=== PATIENT | female | born 1960 | race Caucasian/White ===

== ENCOUNTER 2020-02-27 00:18 | Emergency (ER) | payer MEDICAID, OTHER ==
[~2020-02-27] VITALS: Ht 172.7 cm; Wt 68.0 kg
[2020-02-27] MEDS ORDERED: TETanus/Pertussis (Acell)/Diphther VAC/PF (Tdap-Adult) 0.5ml syringe IMVAC ONE (00:25)
[2020-02-27] MEDS ORDERED: normal saline 1000ML IV soln IVB ONE (00:25)
[2020-02-27] MEDS ORDERED: magnesium oxide 400mg tablet PO ONE (00:25)
[2020-02-27] MEDS ORDERED: phenobarbital inj 260 MG in normal saline 100ml IV soln 100 ML IV ONE (00:25)
[2020-02-27] MEDS ORDERED: ondansetron/PF 4mg/2ml inj IV ONE (00:25)
[2020-02-27] MEDS ORDERED: thiamine 100mg tablet PO ONE (00:25)
[2020-02-27 01:03] LABS: BASOPHILS % (AUTO) 0.4 % (0-1); EOSINOPHILS % (AUTO) 0 % (0-6); HEMATOCRIT 39.9 % (35.0-45.0); HEMOGLOBIN 13.5 g/dl (12.0-16.0); LYMPHOCYTES # (AUTO) 0.7 X10'3 (1.1-4.8); LYMPHOCYTES % (AUTO) 11.5 % (21-51); MEAN CORPUSCULAR HEMOGLOBIN 32.5 PG (27.0-31.0); MEAN CORPUSCULAR HGB CONC 33.8 g/dL (33.0-36.5); MEAN CORPUSCULAR VOLUME 96.2 FL (78-98); MEAN PLATELET VOLUME 6.8 FL (7.4-10.4); MONOCYTES # (AUTO) 0.6 X10'3 (0-0.9); MONOCYTES % (AUTO) 10.7 % (2-12); NEUTROPHILS # (AUTO) 4.5 X10'3 (1.8-7.7); NEUTROPHILS % (AUTO) 77.4 % (42-75); PLATELET COUNT 231 X10'3 (140-440); RED BLOOD COUNT 4.15 X10'6 (4.20-5.60); RED CELL DISTRIBUTION WIDTH 14.4 % (11.5-14.5); WHITE BLOOD COUNT 5.8 X10'3 (4.5-11.0)
[2020-02-27 01:10] LABS: ALANINE AMINOTRANSFERASE 114 U/L (12-78); ALBUMIN 3.9 G/DL (3.4-5.0); ALKALINE PHOSPHATASE 115 IU/L (46-116); ANION GAP 18 (8-16); ASPARTATE AMINO TRANSFERASE 128 U/L (10-37); BILIRUBIN,TOTAL 0.8 MG/DL (0.1-1.0); BLOOD UREA NITROGEN 14 MG/DL (7-18); BUN/CREATININE RATIO 17.5 (6.6-38.0); CALCIUM 9.4 MG/DL (8.5-10.1); CHLORIDE 90 MMOL/L (99-107); ETHANOL < 0.010 GM/DL (0.0-0.010); GLUCOSE 158 MG/DL (70-104); MAGNESIUM 1.9 MG/DL (1.5-2.4); POTASSIUM 3.2 MMOL/L (3.5-5.1); SODIUM 130 MMOL/L (135-145); TOTAL PROTEIN 7.8 G/DL (6.4-8.2); eGFR 73 ML/MIN
[2020-02-27] MEDS ORDERED: potassium Cl 20 mEq SR tablet PO STA (01:33)
[2020-02-27] MEDS ORDERED: phenobarbital inj 130 MG in normal saline 250ml IV soln 250 ML IV ONE (01:35)
[2020-02-27] MEDS ORDERED: mag hydrox/Alum hydrox/simeth 30ml oral suspension PO ONE (02:00)
[2020-02-27] MEDS ORDERED: LIDOcaine Viscous 15ml cup MM PRN (02:00)
[2020-02-27] MEDS ORDERED: sucralfate 1gm/10ml UD suspension PO SCH (02:00)
[2020-02-27] MEDS ORDERED: pantoprazole 40 MG vial IV ONE (02:00)
[2020-02-27] MEDS ORDERED: famotidine/PF 10 mg/ml inj IV ONE (02:00)
[2020-02-27 03:08] VITALS: BP 152/74
== END 2020-02-27 03:13 | disposition home or self-care (01) ==
LOC: ER 00:19
DX: S01.512A Laceration without foreign body of oral cavity, initial encounter (principal); F10.239 Alcohol dependence with withdrawal, unspecified; K21.9 Gastro-esophageal reflux disease without esophagitis; E87.6 Hypokalemia; I10 Essential (primary) hypertension; Z90.710 Acquired absence of both cervix and uterus; X58.XXXA Exposure to other specified factors, initial encounter; Y93.89 Activity, other specified; Y92.89 Other specified places as the place of occurrence of the external cause; Y99.9 Unspecified external cause status; Y90.9 Presence of alcohol in blood, level not specified
CPT/HCPCS: 36415; 80053; 80320; 82948; 83735; 85025; 90471; 90715; 93005; 96374; 96375; 96376; 99284; C9113; J2405; J3490; J7030

== ENCOUNTER 2020-07-11 21:16 | Inpatient (IN) | payer MEDICAID ==
[~2020-07-11] VITALS: Ht 172.7 cm; Wt 72.7 kg
[2020-07-11] MEDS ORDERED: LORazepam 2 mg/ml vial IV ONE (21:35)
[2020-07-11] MEDS ORDERED: normal saline 1000ML IV soln IVB ONE (21:35)
[2020-07-11 21:49] LABS: BASOPHILS % (AUTO) 0.1 % (0-1); EOSINOPHILS % (AUTO) 0 % (0-6); HEMATOCRIT 40.1 % (35.0-45.0); HEMOGLOBIN 13.5 g/dl (12.0-16.0); LYMPHOCYTES # (AUTO) 0.5 X10'3 (1.1-4.8); LYMPHOCYTES % (AUTO) 5.2 % (21-51); MEAN CORPUSCULAR HEMOGLOBIN 30.5 PG (27.0-31.0); MEAN CORPUSCULAR HGB CONC 33.6 g/dL (33.0-36.5); MEAN CORPUSCULAR VOLUME 90.8 FL (78-98); MEAN PLATELET VOLUME 8.1 FL (7.4-10.4); MONOCYTES # (AUTO) 0.6 X10'3 (0-0.9); NEUTROPHILS % (AUTO) 88.7 % (42-75); PLATELET COUNT 200 X10'3 (140-440); RED BLOOD COUNT 4.41 X10'6 (4.20-5.60); RED CELL DISTRIBUTION WIDTH 14.3 % (11.5-14.5); WHITE BLOOD COUNT 10.2 X10'3 (4.5-11.0)
[2020-07-11 22:09] LABS: CLARITY,URINE CLOUDY (Clear); COLOR,URINE STRAW (Yellow); GLUCOSE, URINE NEGATIVE (Neg); KETONES,URINE NEGATIVE (Neg); LEUKOCYTE ESTERASE ,URINE NEGATIVE (Neg); NITRITES, URINE NEGATIVE (Neg); OCCULT BLOOD,URINE SMALL (Neg); PH,URINE 5.5 (4.8-8.0); PROTEIN,URINE 100 mg/dl (Neg); UROBILINOGEN,URINE 0.2 E.U/dL (0.2-1.0)
[2020-07-11 22:09] LABS: ALANINE AMINOTRANSFERASE 56 U/L (12-78); ALBUMIN 3.7 G/DL (3.4-5.0); ALKALINE PHOSPHATASE 90 IU/L (46-116); ANION GAP 14 (8-16); ASPARTATE AMINO TRANSFERASE 49 U/L (10-37); BILIRUBIN,TOTAL 0.8 MG/DL (0.1-1.0); BLOOD UREA NITROGEN 33 MG/DL (7-18); BUN/CREATININE RATIO 11.7 (6.6-38.0); CALCIUM 8.5 MG/DL (8.5-10.1); CHLORIDE 82 MMOL/L (99-107); CREATININE 2.81 MG/DL (0.40-0.90); ETHANOL < 0.010 GM/DL (0.0-0.010); GLUCOSE 146 MG/DL (70-104); POTASSIUM 3.6 MMOL/L (3.5-5.1); SODIUM 121 MMOL/L (135-145); TOTAL CARBON DIOXIDE 24.7 MMOL/L (24-32); TOTAL PROTEIN 7.4 G/DL (6.4-8.2); eGFR 17 ML/MIN
[2020-07-11 22:16] LABS: UA COLLECTION TYPE STRAIGHT CATH
[2020-07-11 22:17] LABS: WBC,URINE NONE SEEN /HPF (0-4)
[2020-07-11 22:18] LABS: AMORPHOUS URATES 3+; BACTERIA,URINE FEW /HPF (Neg); RBC,URINE 0-2 /HPF (0-2); SQUAMOUS EPITHELIAL CELL,UR FEW /LPF (FEW)
[2020-07-11 22:20] LABS: URINE AMPHETAMINE SCREEN NEGATIVE (Neg); URINE BARBITUATE SCREEN NEGATIVE (Neg); URINE BENZODIAZEPINES SCREEN NEGATIVE (Neg); URINE CANNABINOID SCREEN NEGATIVE (Neg); URINE COCAINE SCREEN NEGATIVE (Neg); URINE METHADONE SCREEN NEGATIVE (Neg); URINE OPIATE SCREEN NEGATIVE (Neg); URINE PHENCYCLIDINE SCREEN NEGATIVE (Neg)
[2020-07-11] MEDS ORDERED: sucralfate 1gm/10ml UD suspension PO STA (23:06)
[2020-07-11] MEDS ORDERED: mag hydrox/Alum hydrox/simeth 30ml oral suspension PO ONE (23:10)
[2020-07-11] MEDS ORDERED: LIDOcaine Viscous 15ml cup MM ONE (23:10)
[2020-07-11] MEDS ORDERED: CITA-311 PO (23:16)
[2020-07-11] MEDS ORDERED: TRAZ-256 PO (23:16)
[2020-07-12] MEDS ORDERED: LORazepam 2 mg/ml vial IV ONE (00:30)
--- NOTE | 2020-07-12 00:42 | NUR ---
pt started to try to climb out of bed and pull at her lines, requested ativan to help pt
[2020-07-12] MEDS ORDERED: magnesium hydroxide 30ml (MOM) UD suspension PO PRN (01:00)
[2020-07-12] MEDS ORDERED: acetaminophen 325mg tablet PO PRN (01:00)
[2020-07-12] MEDS ORDERED: potassium Cl 20 mEq SR tablet PO PRN ×2 (01:00)
[2020-07-12] MEDS ORDERED: HYDROcodone/acetaminophen 5mg/325mg tablet PO PRN (01:00)
[2020-07-12] MEDS ORDERED: mag hydrox/Alum hydrox/simeth 30ml oral suspension PO PRN (01:00)
[2020-07-12] MEDS ORDERED: potassium CL 10mEq/100ml bag 100 ML IV PRN ×2 (01:00)
[2020-07-12] MEDS ORDERED: thiamine inj. 100 MG in normal saline 100ml IV soln 100 ML IV ONE (01:05)
[2020-07-12] MEDS ORDERED: thiamine 100mg/ml 2ml inj. IV ONE (01:20)
[2020-07-12] MEDS: normal saline 1000ml 1,000 ML IV SCH ×3 (01:27→21:00)
[2020-07-12] MEDS: LORazepam 2 mg/ml vial IV PRN ×2 (01:52→04:57)
--- NOTE | 2020-07-12 02:12 | NUR ---
Pt resting comfortably with eyes closed
--- NOTE | 2020-07-12 05:15 | NUR ---
Patient arrived to floor from ER via gurney. Patient assist to bed. Patient is alert, but not talking at this time. VS taken and MRSa swab collected.
[2020-07-12 05:20] VITALS: BP 132/76
--- NOTE | 2020-07-12 06:10 | NUR ---
Patient in room ORTHO 4010. I have received report from Ning and had the opportunity to ask questions and assume patient care.
--- NOTE | 2020-07-12 06:19 | NUR ---
Problems reprioritized. Patient report given, questions answered & plan of care reviewed with PORTIA Roper.
[2020-07-12] MEDS: K and/or MAG REPLACEMENT MC SCH ×2 (08:00→20:00)
[2020-07-12] MEDS ORDERED: haloperidol lactate 5mg/ml inj IM PRN (08:05)
[2020-07-12] MEDS ORDERED: LORazepam 2 mg/ml vial IV PRN ×2 (08:05)
[2020-07-12 09:20] LABS: BASOPHILS % (AUTO) 0.1 % (0-1); EOSINOPHILS % (AUTO) 0.1 % (0-6); HEMATOCRIT 34.5 % (35.0-45.0); HEMOGLOBIN 11.8 g/dl (12.0-16.0); LYMPHOCYTES # (AUTO) 0.6 X10'3 (1.1-4.8); LYMPHOCYTES % (AUTO) 11.4 % (21-51); MEAN CORPUSCULAR HEMOGLOBIN 31.3 PG (27.0-31.0); MEAN CORPUSCULAR HGB CONC 34.2 g/dL (33.0-36.5); MEAN CORPUSCULAR VOLUME 91.4 FL (78-98); MEAN PLATELET VOLUME 8.4 FL (7.4-10.4); MONOCYTES # (AUTO) 0.6 X10'3 (0-0.9); MONOCYTES % (AUTO) 10.4 % (2-12); NEUTROPHILS # (AUTO) 4.3 X10'3 (1.8-7.7); PLATELET COUNT 145 X10'3 (140-440); RED BLOOD COUNT 3.77 X10'6 (4.20-5.60); WHITE BLOOD COUNT 5.5 X10'3 (4.5-11.0)
[2020-07-12 09:46] LABS: ALANINE AMINOTRANSFERASE 47 U/L (12-78); ALBUMIN 2.9 G/DL (3.4-5.0); ALBUMIN/GLOBULIN RATIO 0.9 (1.1-1.5); ALKALINE PHOSPHATASE 63 IU/L (46-116); ANION GAP 6 (8-16); ASPARTATE AMINO TRANSFERASE 40 U/L (10-37); BILIRUBIN,TOTAL 0.9 MG/DL (0.1-1.0); BLOOD UREA NITROGEN 33 MG/DL (7-18); BUN/CREATININE RATIO 13.1 (6.6-38.0); CALCIUM 7.8 MG/DL (8.5-10.1); CHLORIDE 89 MMOL/L (99-107); CREATININE 2.51 MG/DL (0.40-0.90); GLUCOSE 87 MG/DL (70-104); POTASSIUM 3.5 MMOL/L (3.5-5.1); SODIUM 126 MMOL/L (135-145); TOTAL CARBON DIOXIDE 31.5 MMOL/L (24-32); TOTAL PROTEIN 6.1 G/DL (6.4-8.2); eGFR 19 ML/MIN
[2020-07-12 10:00] VITALS: BP 130/66
[2020-07-12] MEDS: thiamine 100mg tablet PO SCH (10:07)
[2020-07-12] MEDS: heparin, porcine 5000 units/ml vial SQ SCH ×2 (10:07→20:07)
[2020-07-12 18:00] VITALS: BP 143/90
--- NOTE | 2020-07-12 18:10 | NUR ---
Patient in room ORTHO 4010. I have received report from PORTIA Roper and had the opportunity to ask questions and assume patient care.
--- NOTE | 2020-07-12 18:17 | NUR ---
Problems reprioritized. Patient report given, questions answered & plan of care reviewed with
[2020-07-12] MEDS: traZODone 50mg tablet PO SCH (21:48)
[2020-07-12 22:00] VITALS: BP 132/80
[2020-07-13 06:00] VITALS: BP 139/73
--- NOTE | 2020-07-13 06:29 | NUR ---
Problems reprioritized. Patient report given, questions answered & plan of care reviewed with PORTIA Celaya.
--- NOTE | 2020-07-13 06:37 | NUR ---
Patient in room ORTHO 4010. I have received report from PORTIA Burgess and had the opportunity to ask questions and assume patient care.
[2020-07-13] MEDS: normal saline 1000ml 1,000 ML IV SCH ×3 (07:00→22:22)
[2020-07-13] MEDS: thiamine 100mg tablet PO SCH (07:29)
[2020-07-13] MEDS: heparin, porcine 5000 units/ml vial SQ SCH ×2 (07:29→19:38)
[2020-07-13 07:47] LABS: ALANINE AMINOTRANSFERASE 51 U/L (12-78); ALBUMIN/GLOBULIN RATIO 0.9 (1.1-1.5); ALKALINE PHOSPHATASE 67 IU/L (46-116); ANION GAP 6 (8-16); ASPARTATE AMINO TRANSFERASE 46 U/L (10-37); BILIRUBIN,TOTAL 0.7 MG/DL (0.1-1.0); BLOOD UREA NITROGEN 36 MG/DL (7-18); CALCIUM 8.5 MG/DL (8.5-10.1); CHLORIDE 98 MMOL/L (99-107); GLUCOSE 93 MG/DL (70-104); SODIUM 134 MMOL/L (135-145); TOTAL CARBON DIOXIDE 29.7 MMOL/L (24-32); TOTAL PROTEIN 6.3 G/DL (6.4-8.2); eGFR 25 ML/MIN
[2020-07-13 07:48] LABS: BASOPHILS % (AUTO) 0.2 % (0-1); EOSINOPHILS % (AUTO) 0.4 % (0-6); HEMATOCRIT 36.6 % (35.0-45.0); HEMOGLOBIN 12.5 g/dl (12.0-16.0); LYMPHOCYTES # (AUTO) 0.8 X10'3 (1.1-4.8); LYMPHOCYTES % (AUTO) 17.1 % (21-51); MEAN CORPUSCULAR HEMOGLOBIN 31.4 PG (27.0-31.0); MEAN CORPUSCULAR HGB CONC 34.1 g/dL (33.0-36.5); MEAN CORPUSCULAR VOLUME 92.3 FL (78-98); MEAN PLATELET VOLUME 8.7 FL (7.4-10.4); MONOCYTES # (AUTO) 0.6 X10'3 (0-0.9); MONOCYTES % (AUTO) 12.1 % (2-12); NEUTROPHILS # (AUTO) 3.3 X10'3 (1.8-7.7); NEUTROPHILS % (AUTO) 70.2 % (42-75); PLATELET COUNT 130 X10'3 (140-440); RED BLOOD COUNT 3.96 X10'6 (4.20-5.60); RED CELL DISTRIBUTION WIDTH 14.4 % (11.5-14.5); WHITE BLOOD COUNT 4.7 X10'3 (4.5-11.0)
[2020-07-13] MEDS: K and/or MAG REPLACEMENT MC SCH ×2 (08:00→19:26)
[2020-07-13 10:00] VITALS: BP 134/82
[2020-07-13 18:00] VITALS: BP 147/93
--- NOTE | 2020-07-13 18:40 | NUR ---
Problems reprioritized. Patient report given, questions answered & plan of care reviewed with PORTIA Isaacs.
--- NOTE | 2020-07-13 18:45 | NUR ---
Patient in room ORTHO 4010. I have received report from PORTIA Celaya and had the opportunity to ask questions and assume patient care.
[2020-07-13 22:00] VITALS: BP 143/85
[2020-07-13] MEDS: traZODone 50mg tablet PO SCH (22:22)
[2020-07-14] MEDS ORDERED: LORazepam 1 MG tablet PO PRN (01:05)
--- NOTE | 2020-07-14 02:45 | NUR ---
Pt has field start IV on left wrist, infusing well with fluid. Dressing CDI. Pt refused new IV start.
[2020-07-14 06:00] VITALS: BP 151/80
--- NOTE | 2020-07-14 06:12 | NUR ---
Patient in room ORTHO 4010. I have received report from PORTIA Isaacs and had the opportunity to ask questions and assume patient care.
--- NOTE | 2020-07-14 06:15 | NUR ---
Problems reprioritized. Patient report given, questions answered & plan of care reviewed with PORTIA Celaya.
[2020-07-14 07:02] LABS: BASOPHILS % (AUTO) 0.3 % (0-1); EOSINOPHILS % (AUTO) 0.9 % (0-6); HEMATOCRIT 34.7 % (35.0-45.0); HEMOGLOBIN 11.6 g/dl (12.0-16.0); LYMPHOCYTES # (AUTO) 0.9 X10'3 (1.1-4.8); LYMPHOCYTES % (AUTO) 18.8 % (21-51); MEAN CORPUSCULAR HEMOGLOBIN 31.2 PG (27.0-31.0); MEAN CORPUSCULAR HGB CONC 33.3 g/dL (33.0-36.5); MEAN CORPUSCULAR VOLUME 93.5 FL (78-98); MEAN PLATELET VOLUME 8.7 FL (7.4-10.4); MONOCYTES # (AUTO) 0.6 X10'3 (0-0.9); MONOCYTES % (AUTO) 12.2 % (2-12); NEUTROPHILS # (AUTO) 3.4 X10'3 (1.8-7.7); NEUTROPHILS % (AUTO) 67.8 % (42-75); PLATELET COUNT 124 X10'3 (140-440); RED BLOOD COUNT 3.71 X10'6 (4.20-5.60); RED CELL DISTRIBUTION WIDTH 14.2 % (11.5-14.5)
[2020-07-14] MEDS: thiamine 100mg tablet PO SCH (07:09)
[2020-07-14] MEDS: heparin, porcine 5000 units/ml vial SQ SCH (07:09)
[2020-07-14] MEDS ORDERED: LOSA25TA96 PO (07:13)
[2020-07-14 07:14] LABS: ALANINE AMINOTRANSFERASE 43 U/L (12-78); ALBUMIN 2.9 G/DL (3.4-5.0); ALBUMIN/GLOBULIN RATIO 0.9 (1.1-1.5); ALKALINE PHOSPHATASE 75 IU/L (46-116); ANION GAP 8 (8-16); ASPARTATE AMINO TRANSFERASE 29 U/L (10-37); BILIRUBIN,TOTAL 0.5 MG/DL (0.1-1.0); BLOOD UREA NITROGEN 29 MG/DL (7-18); BUN/CREATININE RATIO 17.3 (6.6-38.0); CALCIUM 8.2 MG/DL (8.5-10.1); CHLORIDE 100 MMOL/L (99-107); CREATININE 1.68 MG/DL (0.40-0.90); GLUCOSE 107 MG/DL (70-104); POTASSIUM 3.7 MMOL/L (3.5-5.1); SODIUM 136 MMOL/L (135-145); TOTAL PROTEIN 6.1 G/DL (6.4-8.2); eGFR 31 ML/MIN
[2020-07-14] MEDS: K and/or MAG REPLACEMENT MC SCH (07:17)
[2020-07-14] MEDS: normal saline 1000ml 1,000 ML IV SCH (08:12)
[2020-07-14 10:00] VITALS: BP 130/75
--- NOTE | 2020-07-14 13:59 | NUR ---
Discharged. PIV out. Educated on follow-up. Patient ambulated out.
[2020-07-16] MEDS ORDERED: LORazepam 1 MG tablet PO PRN (01:05)
== END 2020-07-14 13:30 | disposition home or self-care (01) | DRG 469 ==
LOC: ER 21:17 → ED HOLD 07-12 01:00 → ORTHO 4S 07-12 05:18
PROVIDERS: ADMIT Internal Medicine; ATTEND Family Medicine
DX: N17.9 Acute kidney failure, unspecified (principal); E86.0 Dehydration; E87.1 Hypo-osmolality and hyponatremia; F10.239 Alcohol dependence with withdrawal, unspecified; F32.9 Major depressive disorder, single episode, unspecified; I10 Essential (primary) hypertension; R56.9 Unspecified convulsions; Z90.710 Acquired absence of both cervix and uterus
CPT/HCPCS: 36415; 70450; 71045; 80053; 80305; 80320; 81001; 82948; 85025; 87081; 96374; 96376; 99285; G0378; J1644; J2060; J3411; J7030

== ENCOUNTER 2020-10-24 16:47 | Emergency (ER) | payer MEDICAID ==
[~2020-10-24] VITALS: Ht 172.7 cm; Wt 76.4 kg
[~2020-10-24 16:47] MED LIST: CITA-311 PO; LOSA25TA96 PO; TRAZ-256 PO
[2020-10-24] MEDS ORDERED: normal saline 1000ML IV soln IVB ONE ×2 (17:10→18:15)
[2020-10-24] MEDS ORDERED: LORazepam 2 mg/ml vial IV ONE (17:10)
[2020-10-24 17:47] LABS: BASOPHILS % (AUTO) 0.2 % (0-1); EOSINOPHILS % (AUTO) 0 % (0-6); HEMATOCRIT 42.3 % (35.0-45.0); HEMOGLOBIN 14.2 g/dl (12.0-16.0); LYMPHOCYTES # (AUTO) 0.2 X10'3 (1.1-4.8); LYMPHOCYTES % (AUTO) 1.8 % (21-51); MEAN CORPUSCULAR HEMOGLOBIN 31.5 PG (27.0-31.0); MEAN CORPUSCULAR HGB CONC 33.6 g/dL (33.0-36.5); MEAN CORPUSCULAR VOLUME 93.8 FL (78-98); MEAN PLATELET VOLUME 7.1 FL (7.4-10.4); MONOCYTES # (AUTO) 0.5 X10'3 (0-0.9); MONOCYTES % (AUTO) 3.7 % (2-12); NEUTROPHILS # (AUTO) 11.6 X10'3 (1.8-7.7); NEUTROPHILS % (AUTO) 94.3 % (42-75); PLATELET COUNT 300 X10'3 (140-440); RED BLOOD COUNT 4.51 X10'6 (4.20-5.60); RED CELL DISTRIBUTION WIDTH 13.5 % (11.5-14.5); WHITE BLOOD COUNT 12.3 X10'3 (4.5-11.0)
[2020-10-24 18:03] LABS: ALANINE AMINOTRANSFERASE 207 U/L (12-78); ALBUMIN 4.5 G/DL (3.4-5.0); ALKALINE PHOSPHATASE 97 IU/L (46-116); ANION GAP 22 (8-16); ASPARTATE AMINO TRANSFERASE 177 U/L (10-37); BILIRUBIN,TOTAL 1.1 MG/DL (0.1-1.0); BLOOD UREA NITROGEN 17 MG/DL (7-18); CALCIUM 9.6 MG/DL (8.5-10.1); CHLORIDE 91 MMOL/L (99-107); CREATININE 0.81 MG/DL (0.40-0.90); GLUCOSE 114 MG/DL (70-104); SODIUM 133 MMOL/L (135-145); TOTAL PROTEIN 8.8 G/DL (6.4-8.2); eGFR 72 ML/MIN
[2020-10-24 18:06] LABS: ETHANOL < 0.010 GM/DL (0.0-0.010); LACTIC SEPSIS 3.5 MMOL/L (0.4-2.0); TROPONIN I < 0.04 NG/ML (0.0-0.05)
[2020-10-24 18:11] LABS: AMMONIA < 10 UMOL/L (11-32)
[2020-10-24 19:34] LABS: CLARITY,URINE CLEAR (Clear); COLOR,URINE YELLOW (Yellow); GLUCOSE, URINE NEGATIVE (Neg); KETONES,URINE >=80 mg/dl (Neg); LEUKOCYTE ESTERASE ,URINE NEGATIVE (Neg); NITRITES, URINE NEGATIVE (Neg); OCCULT BLOOD,URINE LARGE (Neg); PH,URINE 5.5 (4.8-8.0); PROTEIN,URINE 30 mg/dl (Neg); UROBILINOGEN,URINE 0.2 E.U/dL (0.2-1.0)
[2020-10-24 19:45] LABS: UA COLLECTION TYPE STRAIGHT CATH
[2020-10-24 19:46] LABS: BACTERIA,URINE NONE SEEN /HPF (Neg); RBC,URINE 0-2 /HPF (0-2); SQUAMOUS EPITHELIAL CELL,UR FEW /LPF (FEW); WBC,URINE NONE SEEN /HPF (0-4)
[2020-10-24 19:48] LABS: URINE AMPHETAMINE SCREEN NEGATIVE (Neg); URINE BARBITUATE SCREEN NEGATIVE (Neg); URINE BENZODIAZEPINES SCREEN NEGATIVE (Neg); URINE CANNABINOID SCREEN NEGATIVE (Neg); URINE COCAINE SCREEN NEGATIVE (Neg); URINE METHADONE SCREEN NEGATIVE (Neg); URINE OPIATE SCREEN NEGATIVE (Neg); URINE PHENCYCLIDINE SCREEN NEGATIVE (Neg)
[2020-10-24] MEDS ORDERED: CHLO25CA10 PO (20:41)
[2020-10-24 21:01] VITALS: BP 160/81
== END 2020-10-24 22:06 | disposition home or self-care (01) ==
LOC: ER 16:48
DX: R56.9 Unspecified convulsions (principal); R41.82 Altered mental status, unspecified; R53.1 Weakness; F10.129 Alcohol abuse with intoxication, unspecified; R74.02 Elevation of levels of lactic acid dehydrogenase [LDH]; I10 Essential (primary) hypertension; I25.2 Old myocardial infarction; F32.9 Major depressive disorder, single episode, unspecified; Z90.710 Acquired absence of both cervix and uterus; Z72.89 Other problems related to lifestyle; Z79.899 Other long term (current) drug therapy
CPT/HCPCS: 36415; 71045; 80053; 80305; 80320; 81001; 82140; 82948; 83605; 84484; 85025; 87040; 93005; 96361; 96374; 99285; J2060; J7030

== ENCOUNTER 2021-01-31 13:33 | Emergency (ER) | payer MEDICAID ==
[~2021-01-31] VITALS: Ht 170.2 cm; Wt 70.0 kg
[~2021-01-31 13:33] MED LIST changes: +CHLO25CA10 PO; +pantoprazole 40mg Tablet.DR PO ONE
[2021-01-31] MEDS ORDERED: normal saline 1000ml 1,000 ML IV ONE (13:50)
[2021-01-31] MEDS ORDERED: LORazepam 2 mg/ml vial IV ONE ×2 (13:50→14:25)
[2021-01-31] MEDS ORDERED: levetiracetam inj 1,000 MG in normal saline 100ml IV soln 90 ML IV ONE (13:50)
[2021-01-31 14:10] LABS: BASOPHILS % (AUTO) 0.6 % (0-1); EOSINOPHILS % (AUTO) 0.1 % (0-6); HEMOGLOBIN 12.4 g/dl (12.0-16.0); LYMPHOCYTES # (AUTO) 0.8 X10'3 (1.1-4.8); LYMPHOCYTES % (AUTO) 10.9 % (21-51); MEAN CORPUSCULAR HEMOGLOBIN 32.2 PG (27.0-31.0); MEAN CORPUSCULAR HGB CONC 32.7 g/dL (33.0-36.5); MEAN CORPUSCULAR VOLUME 98.5 FL (78-98); MONOCYTES # (AUTO) 0.4 X10'3 (0-0.9); MONOCYTES % (AUTO) 5.1 % (2-12); NEUTROPHILS # (AUTO) 6.1 X10'3 (1.8-7.7); NEUTROPHILS % (AUTO) 83.3 % (42-75); PLATELET COUNT 254 X10'3 (140-440); RED BLOOD COUNT 3.86 X10'6 (4.20-5.60); RED CELL DISTRIBUTION WIDTH 17.9 % (11.5-14.5); WHITE BLOOD COUNT 7.3 X10'3 (4.5-11.0)
[2021-01-31 14:24] LABS: ALANINE AMINOTRANSFERASE 42 U/L (12-78); ALBUMIN 3.5 G/DL (3.4-5.0); ALKALINE PHOSPHATASE 130 IU/L (46-116); ANION GAP 17 (8-16); ASPARTATE AMINO TRANSFERASE 42 U/L (10-37); BILIRUBIN,TOTAL 0.9 MG/DL (0.1-1.0); BLOOD UREA NITROGEN 11 MG/DL (7-18); BUN/CREATININE RATIO 11.6 (6.6-38.0); CALCIUM 8.9 MG/DL (8.5-10.1); CHLORIDE 95 MMOL/L (99-107); CREATINE KINASE 108 U/L (26-192); CREATININE 0.95 MG/DL (0.40-0.90); ETHANOL < 0.010 GM/DL (0.0-0.010); GLUCOSE 180 MG/DL (70-104); SODIUM 135 MMOL/L (135-145); TOTAL CARBON DIOXIDE 22.8 MMOL/L (24-32); TOTAL PROTEIN 7.1 G/DL (6.4-8.2); eGFR 60 ML/MIN
--- NOTE | 2021-01-31 14:29 | NUR ---
k is 3.0 reported to noemi wilson
[2021-01-31] MEDS ORDERED: potassium Cl 20 mEq SR tablet PO STA (14:33)
[2021-01-31] MEDS ORDERED: normal saline 1000ML IV soln IVB ONE (15:20)
[2021-01-31] MEDS ORDERED: ondansetron/PF 4mg/2ml inj IV ONE (15:45)
[2021-01-31] MEDS ORDERED: magnesium oxide 400mg tablet PO ONE (15:45)
[2021-01-31] MEDS ORDERED: thiamine 100mg tablet PO ONE (15:45)
[2021-01-31] MEDS ORDERED: phenobarbital inj 260 MG in normal saline 100ml IV soln 100 ML IV ONE (15:45)
[2021-01-31] MEDS: normal saline 1000ML IV soln IVB ONE ×2 (16:12→16:29)
[2021-01-31 16:30] LABS: MAGNESIUM 1.6 MG/DL (1.5-2.4)
[2021-01-31 16:41] LABS: URINE AMPHETAMINE SCREEN NEGATIVE (Neg); URINE BARBITUATE SCREEN NEGATIVE (Neg); URINE BENZODIAZEPINES SCREEN NEGATIVE (Neg); URINE CANNABINOID SCREEN POSITIVE (Neg); URINE COCAINE SCREEN NEGATIVE (Neg); URINE METHADONE SCREEN NEGATIVE (Neg); URINE OPIATE SCREEN NEGATIVE (Neg); URINE PHENCYCLIDINE SCREEN NEGATIVE (Neg)
[2021-01-31] MEDS ORDERED: GABA300T26 PO (17:30)
--- NOTE | 2021-01-31 17:41 | NUR ---
NO SZ ACTIVITY NOTED.
--- NOTE | 2021-01-31 18:31 | NUR ---
fluid challenge. pt tolerated 200cc of h20
[2021-01-31 18:52] VITALS: BP 139/69
== END 2021-01-31 20:24 | disposition home or self-care (01) ==
LOC: ER 13:34
DX: R56.9 Unspecified convulsions (principal); F10.239 Alcohol dependence with withdrawal, unspecified; E87.2 Acidosis; I10 Essential (primary) hypertension; I25.2 Old myocardial infarction; F32.9 Major depressive disorder, single episode, unspecified; Z90.710 Acquired absence of both cervix and uterus; Z79.899 Other long term (current) drug therapy; Y90.0 Blood alcohol level of less than 20 mg/100 ml
CPT/HCPCS: 36415; 71045; 80053; 80305; 80320; 82140; 82550; 83605; 83735; 85025; 93005; 96361; 96365; 96366; 96375; 99285; J2060; J2405; J2560; J7030

== ENCOUNTER 2021-07-13 21:04 | Inpatient (IN) | payer MEDICAID ==
[~2021-07-13] VITALS: Ht 170.2 cm; Wt 66.0 kg
[~2021-07-13 21:04] MED LIST changes: +GABA300T26 PO; -pantoprazole 40mg Tablet.DR PO ONE
[2021-07-13 22:05] LABS: BASOPHILS % (AUTO) 0.1 % (0-1); EOSINOPHILS % (AUTO) 0.1 % (0-6); HEMATOCRIT 40.1 % (35.0-45.0); HEMOGLOBIN 13.9 g/dl (12.0-16.0); LYMPHOCYTES # (AUTO) 0.5 X10'3 (1.1-4.8); LYMPHOCYTES % (AUTO) 6.7 % (21-51); MEAN CORPUSCULAR HEMOGLOBIN 33.8 PG (27.0-31.0); MEAN CORPUSCULAR HGB CONC 34.7 g/dL (33.0-36.5); MEAN CORPUSCULAR VOLUME 97.3 FL (78-98); MEAN PLATELET VOLUME 9.6 FL (7.4-10.4); MONOCYTES # (AUTO) 1.5 X10'3 (0-0.9); MONOCYTES % (AUTO) 19.4 % (2-12); NEUTROPHILS # (AUTO) 5.5 X10'3 (1.8-7.7); NEUTROPHILS % (AUTO) 73.7 % (42-75); PLATELET COUNT 147 X10'3 (140-440); RED BLOOD COUNT 4.12 X10'6 (4.20-5.60); RED CELL DISTRIBUTION WIDTH 19.1 % (11.5-14.5); WHITE BLOOD COUNT 7.5 X10'3 (4.5-11.0)
[2021-07-13 22:17] LABS: ALANINE AMINOTRANSFERASE 345 U/L (12-78); ALBUMIN 3.8 G/DL (3.4-5.0); ALBUMIN/GLOBULIN RATIO 0.9 (1.1-1.5); ALKALINE PHOSPHATASE 123 IU/L (46-116); ANION GAP 19 (8-16); ASPARTATE AMINO TRANSFERASE 531 U/L (10-37); BILIRUBIN,TOTAL 1.1 MG/DL (0.1-1.0); BLOOD UREA NITROGEN 79 MG/DL (7-18); BUN/CREATININE RATIO 48.5 (6.6-38.0); CALCIUM 9.4 MG/DL (8.5-10.1); CHLORIDE 84 MMOL/L (99-107); CREATININE 1.63 MG/DL (0.40-0.90); GLUCOSE 142 MG/DL (70-104); LIPASE 1103 U/L (73-393); SODIUM 126 MMOL/L (135-145); TOTAL CARBON DIOXIDE 23.1 MMOL/L (24-32); eGFR 32 ML/MIN
[2021-07-13 22:22] LABS: POTASSIUM 2.4 MMOL/L (3.5-5.1)
[2021-07-13] MEDS ORDERED: magnesium 2GM in 50ml NS 50 ML IV ONE (23:05)
[2021-07-13] MEDS ORDERED: thiamine 100mg/ml 2ml inj. IV ONE (23:05)
[2021-07-13] MEDS ORDERED: normal saline 1000ml 1,000 ML IV ONE (23:05)
[2021-07-13 23:22] LABS: MAGNESIUM 2.6 MG/DL (1.5-2.4)
[2021-07-13 23:40] LABS: ETHANOL < 0.010 GM/DL (0.0-0.010)
[2021-07-13] MEDS: potassium Cl 10 mEq/100mL bag IV SCH (23:59)
[2021-07-14] LABS: ANISOCYTOSIS 2+; PLATELET ESTIMATE NORMAL; TOTAL CELLS COUNTED 100
[2021-07-14] MEDS: dextrose 5%-normal saline 1,000 ML IV SCH ×2 (00:05→01:02)
[2021-07-14] MEDS: potassium Cl 10 mEq/100mL bag IV SCH ×2 (01:05→02:05)
[2021-07-14] MEDS ORDERED: potassium Cl 20 mEq SR tablet PO PRN ×3 (01:45→07:10)
[2021-07-14] MEDS ORDERED: metoclopramide 5 mg/ml inj IV PRN (01:45)
[2021-07-14] MEDS ORDERED: magnesium Cl slow-release 64mg tablet PO PRN ×2 (01:45→07:10)
[2021-07-14] MEDS ORDERED: magnesium 2GM in 50ml NS 50 ML IV PRN (01:45)
[2021-07-14] MEDS ORDERED: magnesium 4gm in 100ml NS 100 ML IV PRN ×2 (01:45→07:10)
[2021-07-14] MEDS ORDERED: ondansetron/PF 4mg/2ml inj IV PRN (01:45)
[2021-07-14] MEDS ORDERED: LOSA100T57 PO (02:14)
[2021-07-14] MEDS ORDERED: CITA20TA28 PO (02:14)
[2021-07-14] MEDS: normal saline 1000ml 1,000 ML IV SCH ×4 (02:21→23:09)
[2021-07-14 02:31] LABS: URINE HCG NEGATIVE (NEG)
[2021-07-14 02:54] LABS: CLARITY,URINE SLIGHTLY CLOUDY (Clear); COLOR,URINE YELLOW (Yellow); GLUCOSE, URINE NEGATIVE (Neg); PROTEIN,URINE 30 mg/dl (Neg); UA COLLECTION TYPE NON-SPECIFIED
[2021-07-14 02:55] LABS: KETONES,URINE 40 mg/dl (Neg); LEUKOCYTE ESTERASE ,URINE MODERATE (Neg); NITRITES, URINE NEGATIVE (Neg); OCCULT BLOOD,URINE LARGE (Neg); UROBILINOGEN,URINE 0.2 E.U/dL (0.2-1.0)
[2021-07-14 02:57] LABS: AMORPHOUS URATES 1+; BACTERIA,URINE FEW /HPF (Neg); RBC,URINE 0-2 /HPF (0-2); SQUAMOUS EPITHELIAL CELL,UR FEW /LPF (FEW); WBC,URINE 0-4 /HPF (0-4)
[2021-07-14 05:17] LABS: ALBUMIN 2.8 G/DL (3.4-5.0); ANION GAP 12 (8-16); BLOOD UREA NITROGEN 62 MG/DL (7-18); BUN/CREATININE RATIO 52.1 (6.6-38.0); CALCIUM 7.8 MG/DL (8.5-10.1); CHLORIDE 91 MMOL/L (99-107); CREATININE 1.19 MG/DL (0.40-0.90); GLUCOSE 117 MG/DL (70-104); SODIUM 129 MMOL/L (135-145); TOTAL CARBON DIOXIDE 25.8 MMOL/L (24-32); eGFR 46 ML/MIN
[2021-07-14 05:28] LABS: POTASSIUM 2.6 MMOL/L (3.5-5.1)
--- NOTE | 2021-07-14 06:30 | NUR ---
patient received in bed awake,just finished using bsc.Emptied bsc,bmx1.Call light within reach,patient changed into a gown.
[2021-07-14] MEDS ORDERED: potassium Cl 40MEQ/1/2NS 520ml 520 ML IV PRN (07:10)
[2021-07-14] MEDS: pantoprazole 40 MG vial IV SCH (07:42)
[2021-07-14] MEDS: potassium Cl 40MEQ/1/2NS 520ml 520 ML IV PRN ×2 (07:44→15:30)
[2021-07-14] MEDS: K and/or MAG REPLACEMENT MC SCH ×2 (07:59→18:51)
[2021-07-14] MEDS ORDERED: K and/or MAG REPLACEMENT MC SCH (08:00)
[2021-07-14 13:15] LABS: ALANINE AMINOTRANSFERASE 196 U/L (12-78); ALBUMIN 2.9 G/DL (3.4-5.0); ALKALINE PHOSPHATASE 89 IU/L (46-116); ANION GAP 13 (8-16); ASPARTATE AMINO TRANSFERASE 225 U/L (10-37); BILIRUBIN,DIRECT 0.3 MG/DL (0-0.3); BILIRUBIN,TOTAL 0.8 MG/DL (0.1-1.0); BLOOD UREA NITROGEN 51 MG/DL (7-18); BUN/CREATININE RATIO 48.6 (6.6-38.0); CALCIUM 8.1 MG/DL (8.5-10.1); CHLORIDE 95 MMOL/L (99-107); CREATININE 1.05 MG/DL (0.40-0.90); GLUCOSE 95 MG/DL (70-104); SODIUM 132 MMOL/L (135-145); TOTAL CARBON DIOXIDE 24.3 MMOL/L (24-32); TOTAL PROTEIN 5.9 G/DL (6.4-8.2); eGFR 53 ML/MIN
[2021-07-14 13:19] LABS: POTASSIUM 2.8 MMOL/L (3.5-5.1)
[2021-07-14 14:07] LABS: LIPASE 2516 U/L (73-393)
--- NOTE | 2021-07-14 16:18 | NUR ---
ice chips ok per Dr. Adams.
--- NOTE | 2021-07-14 16:19 | NUR ---
bsc emptied twice with bm.
[2021-07-14] MEDS: traZODone 50mg tablet PO SCH (21:00)
[2021-07-15 00:43] LABS: BASOPHILS % (AUTO) 0.1 % (0-1); EOSINOPHILS % (AUTO) 0.8 % (0-6); HEMATOCRIT 31.6 % (35.0-45.0); LYMPHOCYTES # (AUTO) 0.5 X10'3 (1.1-4.8); LYMPHOCYTES % (AUTO) 10.3 % (21-51); MEAN CORPUSCULAR HEMOGLOBIN 34.6 PG (27.0-31.0); MEAN CORPUSCULAR HGB CONC 34.8 g/dL (33.0-36.5); MEAN CORPUSCULAR VOLUME 99.4 FL (78-98); MEAN PLATELET VOLUME 8.4 FL (7.4-10.4); MONOCYTES # (AUTO) 1.4 X10'3 (0-0.9); MONOCYTES % (AUTO) 27.9 % (2-12); NEUTROPHILS % (AUTO) 60.9 % (42-75); PLATELET COUNT 152 X10'3 (140-440); RED BLOOD COUNT 3.18 X10'6 (4.20-5.60); RED CELL DISTRIBUTION WIDTH 18.8 % (11.5-14.5)
[2021-07-15 01:05] LABS: ALBUMIN 2.8 G/DL (3.4-5.0); ANION GAP 10 (8-16); BLOOD UREA NITROGEN 36 MG/DL (7-18); BUN/CREATININE RATIO 40.9 (6.6-38.0); CALCIUM 8.7 MG/DL (8.5-10.1); CHLORIDE 103 MMOL/L (99-107); CREATININE 0.88 MG/DL (0.40-0.90); GLUCOSE 95 MG/DL (70-104); MAGNESIUM 2.3 MG/DL (1.5-2.4); POTASSIUM 3.2 MMOL/L (3.5-5.1); SODIUM 139 MMOL/L (135-145); TOTAL CARBON DIOXIDE 25.7 MMOL/L (24-32); eGFR 65 ML/MIN
[2021-07-15 01:37] LABS: ANISOCYTOSIS 2+; PLATELET ESTIMATE NORMAL; TOTAL CELLS COUNTED 100
[2021-07-15] MEDS: potassium Cl 40MEQ/1/2NS 520ml 520 ML IV PRN ×3 (04:53→19:48)
[2021-07-15] MEDS: K and/or MAG REPLACEMENT MC SCH ×2 (08:00→19:55)
[2021-07-15] MEDS: pantoprazole 40 MG vial IV SCH (08:35)
[2021-07-15] MEDS: losartan 50mg tablet PO SCH (08:36)
[2021-07-15] MEDS: citalopram 20mg tablet PO SCH (08:36)
[2021-07-15 09:18] LABS: BASOPHILS % (AUTO) 0.1 % (0-1); EOSINOPHILS # (AUTO) 0.1 X10'3 (0-0.9); HEMATOCRIT 33.2 % (35.0-45.0); HEMOGLOBIN 11.2 g/dl (12.0-16.0); LYMPHOCYTES # (AUTO) 0.6 X10'3 (1.1-4.8); LYMPHOCYTES % (AUTO) 11.8 % (21-51); MEAN CORPUSCULAR HEMOGLOBIN 34.4 PG (27.0-31.0); MEAN CORPUSCULAR HGB CONC 33.8 g/dL (33.0-36.5); MEAN CORPUSCULAR VOLUME 101.8 FL (78-98); MEAN PLATELET VOLUME 7.8 FL (7.4-10.4); MONOCYTES # (AUTO) 1.4 X10'3 (0-0.9); MONOCYTES % (AUTO) 25.7 % (2-12); NEUTROPHILS # (AUTO) 3.3 X10'3 (1.8-7.7); NEUTROPHILS % (AUTO) 61.4 % (42-75); PLATELET COUNT 174 X10'3 (140-440); RED BLOOD COUNT 3.26 X10'6 (4.20-5.60); RED CELL DISTRIBUTION WIDTH 19.2 % (11.5-14.5); WHITE BLOOD COUNT 5.4 X10'3 (4.5-11.0)
--- NOTE | 2021-07-15 09:20 | NUR ---
Patient in room ED 4. I have received report from Grecia PEARCE and had the opportunity to ask questions and assume patient care.
[2021-07-15 09:51] LABS: ALANINE AMINOTRANSFERASE 167 U/L (12-78); ALBUMIN 2.9 G/DL (3.4-5.0); ALBUMIN/GLOBULIN RATIO 0.9 (1.1-1.5); ALKALINE PHOSPHATASE 90 IU/L (46-116); ANION GAP 14 (8-16); ASPARTATE AMINO TRANSFERASE 174 U/L (10-37); BILIRUBIN,TOTAL 0.7 MG/DL (0.1-1.0); BLOOD UREA NITROGEN 25 MG/DL (7-18); BUN/CREATININE RATIO 32.9 (6.6-38.0); CALCIUM 8.5 MG/DL (8.5-10.1); CHLORIDE 102 MMOL/L (99-107); CREATININE 0.76 MG/DL (0.40-0.90); GLUCOSE 88 MG/DL (70-104); SODIUM 138 MMOL/L (135-145); TOTAL CARBON DIOXIDE 21.9 MMOL/L (24-32); TOTAL PROTEIN 6.3 G/DL (6.4-8.2); eGFR 77 ML/MIN
[2021-07-15 09:53] VITALS: BP 131/79
--- NOTE | 2021-07-15 09:53 | NUR ---
Patient oriented to room, call light within reach. Vitals documented in routine vitals intervention.
[2021-07-15 09:54] LABS: POTASSIUM 2.9 MMOL/L (3.5-5.1)
--- NOTE | 2021-07-15 09:59 | NUR ---
Paged Dr. Perez regarding K+ PAGER ID: [phone] MESSAGE: [phone] Liv Mazariegos. Critical lab potassium 2.9, and that's with 40meq 1/2 NS running. [facility] Crystal
[2021-07-15 10:11] LABS: LIPASE 5603 U/L (73-393)
[2021-07-15 11:00] VITALS: BP 136/71
[2021-07-15] MEDS ORDERED: thiamine 100mg/ml 2ml inj. IV ONE (14:55)
[2021-07-15] MEDS ORDERED: LORazepam 2 mg/ml vial IV PRN (14:55)
[2021-07-15] MEDS ORDERED: dextrose 50%-water 50ml dispensing syringe IV PRN (14:55)
[2021-07-15 15:00] VITALS: BP 142/78
[2021-07-15] MEDS ORDERED: thiamine inj. 100 MG in normal saline 100ml IV soln 99 ML IV ONE (15:55)
[2021-07-15] MEDS: normal saline 1000ml 1,000 ML IV SCH ×2 (16:29→22:01)
--- NOTE | 2021-07-15 17:32 | NUR ---
Paged Dr. Berg regarding K+ lab PAGER ID: [phone] MESSAGE: [phone] Liv Mazariegos. After second bag of 40 mEq 1/2 NS. Potassium is 3.0. Should I give another bag of potassium? U Crystal
--- NOTE | 2021-07-15 18:13 | NUR ---
Problems reprioritized. Patient report given, questions answered & plan of care reviewed with Hunter PEARCE. Patient stable at transfer of care.
[2021-07-15 19:00] VITALS: BP 162/92
[2021-07-15] MEDS: enoxaparin 40mg/0.4ml syringe SUBCUT SCH (20:09)
[2021-07-15 22:00] VITALS: BP 162/92
[2021-07-15] MEDS: traZODone 50mg tablet PO SCH (23:19)
[2021-07-16] MEDS: potassium Cl 40MEQ/1/2NS 520ml 520 ML IV PRN (00:05)
[2021-07-16] MEDS: normal saline 1000ml 1,000 ML IV SCH ×3 (04:08→19:19)
--- NOTE | 2021-07-16 06:32 | NUR ---
Patient in room PCU 3016. I have received report from Hunter PEARCE and had the opportunity to ask questions and assume patient care.
[2021-07-16 06:34] LABS: BASOPHILS % (AUTO) 0.2 % (0-1); EOSINOPHILS # (AUTO) 0.1 X10'3 (0-0.9); EOSINOPHILS % (AUTO) 2.9 % (0-6); HEMATOCRIT 30.5 % (35.0-45.0); HEMOGLOBIN 10.2 g/dl (12.0-16.0); LYMPHOCYTES # (AUTO) 0.9 X10'3 (1.1-4.8); LYMPHOCYTES % (AUTO) 18.3 % (21-51); MEAN CORPUSCULAR HEMOGLOBIN 34.2 PG (27.0-31.0); MEAN CORPUSCULAR HGB CONC 33.6 g/dL (33.0-36.5); MEAN PLATELET VOLUME 7.5 FL (7.4-10.4); MONOCYTES # (AUTO) 1.4 X10'3 (0-0.9); NEUTROPHILS # (AUTO) 2.3 X10'3 (1.8-7.7); NEUTROPHILS % (AUTO) 49.6 % (42-75); PLATELET COUNT 218 X10'3 (140-440); RED BLOOD COUNT 2.99 X10'6 (4.20-5.60); WHITE BLOOD COUNT 4.7 X10'3 (4.5-11.0)
--- NOTE | 2021-07-16 06:54 | NUR ---
Problems reprioritized. Patient report given, questions answered & plan of care reviewed with Casie PEARCE. Addendum: 07/16/21 at 0654 by Kendrick Briggs RN Amended: Links added.
[2021-07-16 07:00] VITALS: BP 148/79
[2021-07-16 07:00] LABS: ALBUMIN 2.3 G/DL (3.4-5.0); ANION GAP 15 (8-16); BLOOD UREA NITROGEN 10 MG/DL (7-18); BUN/CREATININE RATIO 16.7 (6.6-38.0); CALCIUM 7.9 MG/DL (8.5-10.1); CHLORIDE 107 MMOL/L (99-107); GLUCOSE 78 MG/DL (70-104); MAGNESIUM 1.6 MG/DL (1.5-2.4); POTASSIUM 3.1 MMOL/L (3.5-5.1); SODIUM 142 MMOL/L (135-145); TOTAL CARBON DIOXIDE 19.6 MMOL/L (24-32); eGFR > 90 ML/MIN
[2021-07-16 07:18] LABS: ANISOCYTOSIS 2+; PLATELET ESTIMATE NORMAL; TOTAL CELLS COUNTED 100
[2021-07-16] MEDS: K and/or MAG REPLACEMENT MC SCH ×2 (08:00→20:00)
[2021-07-16] MEDS: pantoprazole 40 MG vial IV SCH (09:04)
[2021-07-16] MEDS: citalopram 20mg tablet PO SCH (09:05)
[2021-07-16] MEDS: losartan 50mg tablet PO SCH (09:05)
[2021-07-16] MEDS: thiamine 100mg tablet PO SCH (09:05)
[2021-07-16] MEDS: folic acid 1mg tablet PO SCH (09:06)
[2021-07-16 11:00] VITALS: BP 155/87
[2021-07-16 11:15] LABS: LIPASE 4199 U/L (73-393)
[2021-07-16] MEDS: potassium Cl 20 mEq SR tablet PO PRN ×2 (13:43→21:19)
[2021-07-16 15:00] VITALS: BP 127/76
--- NOTE | 2021-07-16 18:14 | NUR ---
Patient in room PCU 3016. I have received report from Maria Fernanda PEARCE and had the opportunity to ask questions and assume patient care.
--- NOTE | 2021-07-16 18:30 | NUR ---
Patient in room PCU 3016. I have received report from HENRIQUE and had the opportunity to ask questions and assume patient care.
[2021-07-16 19:00] VITALS: BP 126/83
[2021-07-16] MEDS: enoxaparin 40mg/0.4ml syringe SUBCUT SCH (21:19)
[2021-07-16 22:00] VITALS: BP 140/87
[2021-07-16] MEDS: traZODone 50mg tablet PO SCH (22:15)
[2021-07-17] MEDS: normal saline 1000ml 1,000 ML IV SCH ×4 (00:41→21:51)
--- NOTE | 2021-07-17 06:20 | NUR ---
Problems reprioritized. Patient report given, questions answered & plan of care reviewed with LAUREN.
[2021-07-17 06:36] LABS: ALBUMIN 2.3 G/DL (3.4-5.0); ANION GAP 10 (8-16); BLOOD UREA NITROGEN 6 MG/DL (7-18); BUN/CREATININE RATIO 10.2 (6.6-38.0); CHLORIDE 107 MMOL/L (99-107); CREATININE 0.59 MG/DL (0.40-0.90); GLUCOSE 122 MG/DL (70-104); MAGNESIUM 1.2 MG/DL (1.5-2.4); SODIUM 142 MMOL/L (135-145); TOTAL CARBON DIOXIDE 25.5 MMOL/L (24-32); eGFR > 90 ML/MIN
[2021-07-17 06:44] LABS: BASOPHILS % (AUTO) 0.3 % (0-1); EOSINOPHILS # (AUTO) 0.1 X10'3 (0-0.9); EOSINOPHILS % (AUTO) 1.9 % (0-6); HEMATOCRIT 30.8 % (35.0-45.0); HEMOGLOBIN 10.4 g/dl (12.0-16.0); LYMPHOCYTES # (AUTO) 0.9 X10'3 (1.1-4.8); LYMPHOCYTES % (AUTO) 15.9 % (21-51); MEAN CORPUSCULAR HEMOGLOBIN 35.2 PG (27.0-31.0); MEAN CORPUSCULAR HGB CONC 33.7 g/dL (33.0-36.5); MEAN CORPUSCULAR VOLUME 104.3 FL (78-98); MEAN PLATELET VOLUME 7.4 FL (7.4-10.4); MONOCYTES # (AUTO) 1.8 X10'3 (0-0.9); MONOCYTES % (AUTO) 30.7 % (2-12); NEUTROPHILS % (AUTO) 51.2 % (42-75); PLATELET COUNT 312 X10'3 (140-440); RED BLOOD COUNT 2.95 X10'6 (4.20-5.60); RED CELL DISTRIBUTION WIDTH 18.5 % (11.5-14.5); WHITE BLOOD COUNT 5.9 X10'3 (4.5-11.0)
--- NOTE | 2021-07-17 06:50 | NUR ---
Patient in room PCU 3016. I have received report from PORTIA Irving and had the opportunity to ask questions and assume patient care. Patient asleep in bed and in no acute distress.
[2021-07-17 06:52] LABS: POTASSIUM 2.6 MMOL/L (3.5-5.1)
[2021-07-17 07:00] VITALS: BP 121/73
--- NOTE | 2021-07-17 07:06 | NUR ---
Paged Dr. Berg regarding critical result of K 2.6 PAGER ID: [phone] MESSAGE: [phone]. Liv Mazariegos. Critical results of K 2.6. Thank you. Hilda PEARCE x [phone]
[2021-07-17] MEDS ORDERED: magnesium 2GM in 50ml NS 50 ML IV PRN (08:10)
[2021-07-17] MEDS ORDERED: potassium Cl 20 mEq SR tablet PO PRN (08:10)
[2021-07-17] MEDS ORDERED: potassium Cl 40MEQ/1/2NS 520ml 520 ML IV PRN (08:10)
[2021-07-17] MEDS ORDERED: magnesium 4gm in 100ml NS 100 ML IV PRN (08:10)
[2021-07-17] MEDS: pantoprazole 40 MG vial IV SCH (08:15)
[2021-07-17] MEDS: folic acid 1mg tablet PO SCH (08:16)
[2021-07-17] MEDS: citalopram 20mg tablet PO SCH (08:17)
[2021-07-17] MEDS: losartan 50mg tablet PO SCH (08:17)
[2021-07-17] MEDS: thiamine 100mg tablet PO SCH (08:17)
[2021-07-17] MEDS: potassium Cl 20 mEq SR tablet PO PRN ×3 (08:27→20:31)
[2021-07-17] MEDS: K and/or MAG REPLACEMENT MC SCH ×2 (08:28→20:00)
[2021-07-17] MEDS: magnesium Cl slow-release 64mg tablet PO PRN ×2 (08:28→23:51)
[2021-07-17 10:03] LABS: ANISOCYTOSIS 2+; PLATELET ESTIMATE NORMAL; TOTAL CELLS COUNTED 100
[2021-07-17 10:04] LABS: LARGE PLATELETS FEW
[2021-07-17 11:00] VITALS: BP 146/94
[2021-07-17] MEDS ORDERED: LORazepam 1 MG tablet PO PRN (14:55)
[2021-07-17] MEDS ORDERED: LORazepam 2 mg/ml vial IV PRN (14:55)
[2021-07-17 15:00] VITALS: BP 141/81
--- NOTE | 2021-07-17 17:24 | NUR ---
Orders to advance diet as tolerated to regular diet put in per Dr. Berg
[2021-07-17 18:00] VITALS: BP 142/83
--- NOTE | 2021-07-17 18:24 | NUR ---
Problems reprioritized. Patient report given, questions answered & plan of care reviewed with PORTIA Salcedo. Patient stable at transfer of care.
--- NOTE | 2021-07-17 18:25 | NUR ---
I have received report from daren Odom and had the opportunity to ask questions and assume patient care.
[2021-07-17] MEDS: enoxaparin 40mg/0.4ml syringe SUBCUT SCH (20:25)
[2021-07-17] MEDS: traZODone 50mg tablet PO SCH (21:49)
[2021-07-17 22:47] VITALS: BP 137/78
[2021-07-18 02:50] VITALS: BP 143/82
--- NOTE | 2021-07-18 06:04 | NUR ---
Problems reprioritized. Patient report given, questions answered & plan of care reviewed with PORTIA Herbert.
--- NOTE | 2021-07-18 06:34 | NUR ---
Patient in room PCU 3016. I have received report from PORTIA Salcedo and had the opportunity to ask questions and assume patient care.
[2021-07-18 07:00] VITALS: BP 142/86
[2021-07-18 07:00] LABS: BASOPHILS % (AUTO) 0.2 % (0-1); EOSINOPHILS # (AUTO) 0.1 X10'3 (0-0.9); EOSINOPHILS % (AUTO) 1.6 % (0-6); HEMATOCRIT 30.4 % (35.0-45.0); HEMOGLOBIN 10.1 g/dl (12.0-16.0); LYMPHOCYTES % (AUTO) 19.6 % (21-51); MEAN CORPUSCULAR HEMOGLOBIN 34.1 PG (27.0-31.0); MEAN CORPUSCULAR HGB CONC 33.3 g/dL (33.0-36.5); MEAN CORPUSCULAR VOLUME 102.3 FL (78-98); MEAN PLATELET VOLUME 7.2 FL (7.4-10.4); MONOCYTES # (AUTO) 1.5 X10'3 (0-0.9); MONOCYTES % (AUTO) 28.3 % (2-12); NEUTROPHILS # (AUTO) 2.6 X10'3 (1.8-7.7); NEUTROPHILS % (AUTO) 50.3 % (42-75); PLATELET COUNT 383 X10'3 (140-440); RED BLOOD COUNT 2.97 X10'6 (4.20-5.60); RED CELL DISTRIBUTION WIDTH 19.3 % (11.5-14.5); WHITE BLOOD COUNT 5.2 X10'3 (4.5-11.0)
[2021-07-18 07:24] LABS: ALBUMIN 2.4 G/DL (3.4-5.0); ANION GAP 6 (8-16); BLOOD UREA NITROGEN 3 MG/DL (7-18); BUN/CREATININE RATIO 5.1 (6.6-38.0); CALCIUM 8.3 MG/DL (8.5-10.1); CHLORIDE 108 MMOL/L (99-107); CREATININE 0.59 MG/DL (0.40-0.90); GLUCOSE 108 MG/DL (70-104); MAGNESIUM 1.2 MG/DL (1.5-2.4); POTASSIUM 3.4 MMOL/L (3.5-5.1); SODIUM 140 MMOL/L (135-145); TOTAL CARBON DIOXIDE 25.8 MMOL/L (24-32); eGFR > 90 ML/MIN
[2021-07-18] MEDS ORDERED: pantoprazole 40mg Tablet.DR PO SCH (07:30)
[2021-07-18] MEDS: K and/or MAG REPLACEMENT MC SCH (08:00)
[2021-07-18] MEDS ORDERED: thiamine tablet PO (09:52)
[2021-07-18] MEDS ORDERED: PANT40TA54 PO (09:52)
[2021-07-18] MEDS ORDERED: folic acid tablet PO (09:52)
[2021-07-18] MEDS: folic acid 1mg tablet PO SCH (10:14)
[2021-07-18] MEDS: magnesium Cl slow-release 64mg tablet PO PRN (10:14)
[2021-07-18] MEDS: citalopram 20mg tablet PO SCH (10:15)
[2021-07-18] MEDS: thiamine 100mg tablet PO SCH (10:15)
[2021-07-18] MEDS: losartan 50mg tablet PO SCH (10:15)
[2021-07-18 11:00] VITALS: BP 155/89
[2021-07-18 11:42] LABS: ANISOCYTOSIS 2+; PLATELET ESTIMATE NORMAL; TOTAL CELLS COUNTED 100
--- NOTE | 2021-07-18 17:22 | NUR ---
Patient stable for discharge per md orders. All instructions were given, questions answered appropriately. All belongings were collected and sent with pt. PIV discontinued, cannula intact. New RX sent to [facility] on [address]. Informed pt to follow up with PCP at [facility]. Wheeled pt to parking lot and assisted into Taxi.
[2021-07-19] MEDS ORDERED: LORazepam 1 MG tablet PO PRN (14:55)
[2021-07-19] MEDS ORDERED: LORazepam 2 mg/ml vial IV PRN (14:55)
== END 2021-07-18 17:05 | disposition home or self-care (01) | DRG 422 ==
LOC: ER 21:05 → ED HOLD 07-14 01:41 → UNDOADMIN 07-14 01:41 → ED HOLD 07-14 01:56 → PCU 3S 07-15 09:53
PROVIDERS: ADMIT Internal Medicine; ATTEND Internal Medicine
DX: E86.0 Dehydration (principal); N17.0 Acute kidney failure with tubular necrosis; K85.90 Acute pancreatitis without necrosis or infection, unspecified; E87.2 Acidosis; K70.10 Alcoholic hepatitis without ascites; E87.1 Hypo-osmolality and hyponatremia; E87.6 Hypokalemia; R94.31 Abnormal electrocardiogram [ECG] [EKG]; E83.42 Hypomagnesemia; F32.9 Major depressive disorder, single episode, unspecified; G62.9 Polyneuropathy, unspecified; F10.239 Alcohol dependence with withdrawal, unspecified; K86.1 Other chronic pancreatitis; I10 Essential (primary) hypertension; I25.2 Old myocardial infarction; Z90.710 Acquired absence of both cervix and uterus
CPT/HCPCS: 36415; 70450; 80048; 80053; 80076; 80320; 81001; 81025; 82948; 83690; 83735; 84132; 85007; 85025; 87081; 87088; 93005; 97110; 97161; 97530; 99285; C9113; G0378; J1650; J3411; J3480; J7030; J7042

== ENCOUNTER 2021-12-29 12:55 | Emergency (ER) | payer MEDICAID ==
[~2021-12-29] VITALS: Ht 170.2 cm; Wt 75.0 kg
[~2021-12-29 12:55] MED LIST changes: -CHLO25CA10 PO; -CITA-311 PO; +CITA20TA28 PO; -GABA300T26 PO; +LOSA100T57 PO; -LOSA25TA96 PO; +PANT40TA54 PO; +folic acid tablet PO; +thiamine tablet PO
[2021-12-29] MEDS ORDERED: LORazepam 2 mg/ml vial IV ONE (13:20)
[2021-12-29] MEDS ORDERED: sucralfate 1 gm tablet PO ONE (14:00)
--- NOTE | 2021-12-29 14:11 | NUR ---
[facility] morbidity report filled out and faxed to [facility].
[2021-12-29 14:45] VITALS: BP 165/95
== END 2021-12-29 14:47 | disposition home or self-care (01) ==
LOC: ER 12:56
DX: G40.89 Other seizures (principal); F10.139 Alcohol abuse with withdrawal, unspecified; I10 Essential (primary) hypertension; I25.2 Old myocardial infarction; Z72.89 Other problems related to lifestyle; Z90.710 Acquired absence of both cervix and uterus; Z79.899 Other long term (current) drug therapy; Y90.9 Presence of alcohol in blood, level not specified
CPT/HCPCS: 93005; 96374; 99284; J2060

== ENCOUNTER 2022-02-28 04:04 | Emergency (ER) | payer MEDICAID ==
[~2022-02-28] VITALS: Ht 172.7 cm; Wt 75.0 kg
[2022-02-28] MEDS ORDERED: normal saline 1000ML IV soln IVB ONE (04:15)
[2022-02-28] MEDS ORDERED: LORazepam 2 mg/ml vial IV ONE (04:15)
[2022-02-28] MEDS ORDERED: levetiracetam inj 1,000 MG in normal saline 100ml IV soln 90 ML IV ONE (04:15)
[2022-02-28] MEDS ORDERED: levetiracetam-NS 1000mg/100ml 100 ML IV ONE (04:15)
[2022-02-28 04:32] LABS: BASOPHILS % (AUTO) 0.4 % (0-1); EOSINOPHILS % (AUTO) 0 % (0-6); HEMATOCRIT 38.4 % (35.0-45.0); HEMOGLOBIN 12.9 g/dl (12.0-16.0); LYMPHOCYTES # (AUTO) 0.5 X10'3 (1.1-4.8); LYMPHOCYTES % (AUTO) 7.2 % (21-51); MEAN CORPUSCULAR HEMOGLOBIN 32.5 PG (27.0-31.0); MEAN CORPUSCULAR HGB CONC 33.7 g/dL (33.0-36.5); MEAN CORPUSCULAR VOLUME 96.6 FL (78-98); MEAN PLATELET VOLUME 6.4 FL (7.4-10.4); MONOCYTES # (AUTO) 0.7 X10'3 (0-0.9); MONOCYTES % (AUTO) 9.7 % (2-12); NEUTROPHILS # (AUTO) 6.3 X10'3 (1.8-7.7); NEUTROPHILS % (AUTO) 82.7 % (42-75); PLATELET COUNT 418 X10'3 (140-440); RED BLOOD COUNT 3.98 X10'6 (4.20-5.60); RED CELL DISTRIBUTION WIDTH 14.3 % (11.5-14.5); WHITE BLOOD COUNT 7.6 X10'3 (4.5-11.0)
--- NOTE | 2022-02-28 04:44 | NUR ---
Pt pink, alert, no acute/resp distress. Bed in lowest position, wheels locked, rail 2/2 up. Pt visible at all times. Will continue to monitor for acute/resp distress and further needs.
[2022-02-28 04:49] LABS: GLUCOSE 165 MG/DL (70-104)
[2022-02-28 04:50] LABS: ALANINE AMINOTRANSFERASE 27 U/L (12-78); ALBUMIN 3.8 G/DL (3.4-5.0); ALKALINE PHOSPHATASE 107 IU/L (46-116); ASPARTATE AMINO TRANSFERASE 20 U/L (10-37); BLOOD UREA NITROGEN 17 MG/DL (7-18); BUN/CREATININE RATIO 15.7 (6.6-38.0); CALCIUM 8.7 MG/DL (8.5-10.1); CHLORIDE 93 MMOL/L (99-107); CREATININE 1.08 MG/DL (0.40-0.90); ETHANOL < 0.010 GM/DL (0.0-0.010); POTASSIUM 3.9 MMOL/L (3.5-5.1); SODIUM 132 MMOL/L (135-145); TOTAL PROTEIN 7.7 G/DL (6.4-8.2); eGFR 51 ML/MIN
[2022-02-28 04:52] LABS: ANION GAP 25 (8-16); TOTAL CARBON DIOXIDE 14.2 MMOL/L (24-32)
[2022-02-28] MEDS ORDERED: normal saline 1000ml 1,000 ML IV ONE (05:05)
[2022-02-28] MEDS ORDERED: chlordiazePOXIDE 25mg capsule PO ONE (05:55)
--- NOTE | 2022-02-28 06:00 | NUR ---
Handoff report to dayshift RN
[2022-02-28 09:08] LABS: ALBUMIN 3.1 G/DL (3.4-5.0); ANION GAP 18 (8-16); BLOOD UREA NITROGEN 16 MG/DL (7-18); BUN/CREATININE RATIO 21.3 (6.6-38.0); CALCIUM 7.8 MG/DL (8.5-10.1); CHLORIDE 100 MMOL/L (99-107); CREATININE 0.75 MG/DL (0.40-0.90); GLUCOSE 79 MG/DL (70-104); POTASSIUM 3.9 MMOL/L (3.5-5.1); SODIUM 136 MMOL/L (135-145); TOTAL CARBON DIOXIDE 17.6 MMOL/L (24-32); eGFR 78 ML/MIN
[2022-02-28 10:39] VITALS: BP 131/88
== END 2022-02-28 10:41 | disposition home or self-care (01) ==
LOC: ER 04:05
DX: F10.239 Alcohol dependence with withdrawal, unspecified (principal); G40.501 Epileptic seizures related to external causes, not intractable, with status epilepticus; F10.229 Alcohol dependence with intoxication, unspecified; Y90.9 Presence of alcohol in blood, level not specified; I11.9 Hypertensive heart disease without heart failure; F32.9 Major depressive disorder, single episode, unspecified; Z79.899 Other long term (current) drug therapy
CPT/HCPCS: 36415; 71045; 80048; 80053; 80320; 85025; 96374; 96375; 99284; J1953; J2060; J7030

== ENCOUNTER 2022-04-22 17:38 | Emergency (ER) | payer MEDICAID ==
[~2022-04-22] VITALS: Ht 170.2 cm; Wt 76.8 kg
[2022-04-22] MEDS ORDERED: normal saline 1000ml 1,000 ML IV ONE (18:35)
[2022-04-22] MEDS ORDERED: magnesium 2GM in 50ml NS 50 ML IV ONE (18:35)
[2022-04-22] MEDS ORDERED: ondansetron/PF 4mg/2ml inj IV ONE (18:35)
[2022-04-22] MEDS ORDERED: LORazepam 2 mg/ml vial IV ONE (18:35)
[2022-04-22 18:59] LABS: BASOPHILS % (AUTO) 0.4 % (0-1); EOSINOPHILS % (AUTO) 0 % (0-6); HEMATOCRIT 40.2 % (35.0-45.0); HEMOGLOBIN 13.9 g/dl (12.0-16.0); LYMPHOCYTES # (AUTO) 0.5 X10'3 (1.1-4.8); LYMPHOCYTES % (AUTO) 4.6 % (21-51); MEAN CORPUSCULAR HEMOGLOBIN 32.5 PG (27.0-31.0); MEAN CORPUSCULAR HGB CONC 34.6 g/dL (33.0-36.5); MEAN CORPUSCULAR VOLUME 93.7 FL (78-98); MEAN PLATELET VOLUME 8.7 FL (7.4-10.4); MONOCYTES # (AUTO) 1.2 X10'3 (0-0.9); MONOCYTES % (AUTO) 10.5 % (2-12); NEUTROPHILS # (AUTO) 9.5 X10'3 (1.8-7.7); NEUTROPHILS % (AUTO) 84.5 % (42-75); PLATELET COUNT 167 X10'3 (140-440); RED BLOOD COUNT 4.29 X10'6 (4.20-5.60); RED CELL DISTRIBUTION WIDTH 15.2 % (11.5-14.5); WHITE BLOOD COUNT 11.2 X10'3 (4.5-11.0)
[2022-04-22 19:26] LABS: ALANINE AMINOTRANSFERASE 68 U/L (12-78); ALBUMIN 3.8 G/DL (3.4-5.0); ALBUMIN/GLOBULIN RATIO 0.9 (1.1-1.5); ALKALINE PHOSPHATASE 90 IU/L (46-116); ANION GAP 24 (8-16); ASPARTATE AMINO TRANSFERASE 41 U/L (10-37); BILIRUBIN,TOTAL 1.2 MG/DL (0.1-1.0); BLOOD UREA NITROGEN 50 MG/DL (7-18); BUN/CREATININE RATIO 27.9 (6.6-38.0); CALCIUM 8.8 MG/DL (8.5-10.1); CHLORIDE 84 MMOL/L (99-107); CREATININE 1.79 MG/DL (0.40-0.90); GLUCOSE 222 MG/DL (70-104); POTASSIUM 3.1 MMOL/L (3.5-5.1); SODIUM 131 MMOL/L (135-145); TOTAL CARBON DIOXIDE 22.9 MMOL/L (24-32); TOTAL PROTEIN 7.9 G/DL (6.4-8.2); eGFR 29 ML/MIN
[2022-04-22] MEDS ORDERED: normal saline 1000ML IV soln IVB ONE (19:45)
[2022-04-22] MEDS ORDERED: potassium CL 10mEq/100ml bag 100 ML IV ONE (19:45)
[2022-04-22] MEDS ORDERED: CHLO25CA10 PO (20:08)
[2022-04-22] MEDS ORDERED: ONDA4TAB12 PO (20:08)
[2022-04-22] MEDS ORDERED: POTA-207 PO (20:08)
[2022-04-22 21:54] VITALS: BP 119/69
== END 2022-04-22 18:44 | disposition left against medical advice (07) ==
LOC: ER 17:39
DX: F10.239 Alcohol dependence with withdrawal, unspecified (principal); E87.6 Hypokalemia; R11.2 Nausea with vomiting, unspecified; I10 Essential (primary) hypertension; I25.2 Old myocardial infarction; F32.9 Major depressive disorder, single episode, unspecified; Z90.710 Acquired absence of both cervix and uterus; Z79.899 Other long term (current) drug therapy; Y90.0 Blood alcohol level of less than 20 mg/100 ml
CPT/HCPCS: 36415; 80053; 84484; 85025; 96365; 96375; 99284; J2060; J2405; J3480; J7030

== ENCOUNTER 2022-07-15 11:09 | Emergency (ER) | payer MEDICAID ==
[~2022-07-15] VITALS: Ht 160 cm; Wt 69.5 kg
[~2022-07-15 11:09] MED LIST changes: +CHLO25CA10 PO; +ONDA4TAB12 PO
[2022-07-15] MEDS ORDERED: LORazepam 1 MG tablet PO ONE (11:35)
[2022-07-15 12:18] LABS: BASOPHILS % (AUTO) 0.1 % (0-1); EOSINOPHILS % (AUTO) 0 % (0-6); HEMATOCRIT 40.8 % (35.0-45.0); HEMOGLOBIN 13.7 g/dl (12.0-16.0); LYMPHOCYTES # (AUTO) 0.5 X10'3 (1.1-4.8); MEAN CORPUSCULAR HEMOGLOBIN 31.2 PG (27.0-31.0); MEAN CORPUSCULAR HGB CONC 33.5 g/dL (33.0-36.5); MEAN CORPUSCULAR VOLUME 93.1 FL (78-98); MEAN PLATELET VOLUME 7.2 FL (7.4-10.4); MONOCYTES # (AUTO) 0.7 X10'3 (0-0.9); MONOCYTES % (AUTO) 5.4 % (2-12); NEUTROPHILS % (AUTO) 90.5 % (42-75); PLATELET COUNT 341 X10'3 (140-440); RED BLOOD COUNT 4.38 X10'6 (4.20-5.60); WHITE BLOOD COUNT 13.3 X10'3 (4.5-11.0)
[2022-07-15 12:35] LABS: ALANINE AMINOTRANSFERASE 49 U/L (12-78); ALBUMIN 3.9 G/DL (3.4-5.0); ALKALINE PHOSPHATASE 96 IU/L (46-116); ANION GAP 17 (8-16); ASPARTATE AMINO TRANSFERASE 48 U/L (10-37); BILIRUBIN,TOTAL 0.7 MG/DL (0.1-1.0); BLOOD UREA NITROGEN 23 MG/DL (7-18); BUN/CREATININE RATIO 28.8 (6.6-38.0); CALCIUM 10.3 MG/DL (8.5-10.1); CHLORIDE 93 MMOL/L (99-107); GLUCOSE 124 MG/DL (70-104); POTASSIUM 3.1 MMOL/L (3.5-5.1); SODIUM 132 MMOL/L (135-145); TOTAL CARBON DIOXIDE 21.7 MMOL/L (24-32); eGFR 72 ML/MIN
[2022-07-15] MEDS ORDERED: POTASSIUM BICARB 20meq eff tab 20 MEQ TABLET.EFF PO ONE (13:20)
[2022-07-15] MEDS ORDERED: ringers solution, lactated 1000ml IV soln IV ONE (13:20)
[2022-07-15 15:15] LABS: URINE AMPHETAMINE SCREEN NEGATIVE (Neg); URINE BARBITUATE SCREEN NEGATIVE (Neg); URINE BENZODIAZEPINES SCREEN NEGATIVE (Neg); URINE CANNABINOID SCREEN NEGATIVE (Neg); URINE COCAINE SCREEN NEGATIVE (Neg); URINE METHADONE SCREEN NEGATIVE (Neg); URINE OPIATE SCREEN NEGATIVE (Neg); URINE PHENCYCLIDINE SCREEN NEGATIVE (Neg)
[2022-07-15 15:30] LABS: CLARITY,URINE CLEAR (Clear); COLOR,URINE YELLOW (Yellow); GLUCOSE, URINE NEGATIVE (Neg); KETONES,URINE >=80 mg/dl (Neg); LEUKOCYTE ESTERASE ,URINE NEGATIVE (Neg); NITRITES, URINE NEGATIVE (Neg); OCCULT BLOOD,URINE SMALL (Neg); PROTEIN,URINE 30 mg/dl (Neg); UROBILINOGEN,URINE 0.2 E.U/dL (0.2-1.0)
[2022-07-15 15:38] LABS: UA COLLECTION TYPE OTHER
[2022-07-15 15:42] LABS: BACTERIA,URINE 2+ /HPF (Neg); SQUAMOUS EPITHELIAL CELL,UR NONE SEEN /LPF (FEW); WBC,URINE 0-4 /HPF (0-4)
[2022-07-15 17:17] VITALS: BP 124/55
== END 2022-07-15 17:19 | disposition home or self-care (01) ==
LOC: ER 11:10
DX: R56.9 Unspecified convulsions (principal); R41.0 Disorientation, unspecified; I10 Essential (primary) hypertension; I25.2 Old myocardial infarction; F32.A Depression, unspecified; Z86.69 Personal history of other diseases of the nervous system and sense organs; Z90.710 Acquired absence of both cervix and uterus; Z72.89 Other problems related to lifestyle; Z79.899 Other long term (current) drug therapy
CPT/HCPCS: 36415; 70450; 80053; 80305; 80320; 81001; 85025; 87088; 96360; 96361; 99284; J7030; J7120; A4353

== ENCOUNTER 2022-09-19 09:21 | Emergency (ER) | payer MEDICAID ==
[~2022-09-19] VITALS: Ht 170.2 cm; Wt 75.0 kg
[2022-09-19] MEDS ORDERED: normal saline 1000ML IV soln IV ONE (09:35)
[2022-09-19 09:56] LABS: BASOPHILS # (AUTO) 0.1 X10'3 (0-0.2); BASOPHILS % (AUTO) 0.7 % (0-1); EOSINOPHILS % (AUTO) 0.1 % (0-6); HEMATOCRIT 39.7 % (35.0-45.0); HEMOGLOBIN 13.2 g/dl (12.0-16.0); LYMPHOCYTES # (AUTO) 1.3 X10'3 (1.1-4.8); LYMPHOCYTES % (AUTO) 17.2 % (21-51); MEAN CORPUSCULAR HEMOGLOBIN 31.4 PG (27.0-31.0); MEAN CORPUSCULAR HGB CONC 33.2 g/dL (33.0-36.5); MEAN CORPUSCULAR VOLUME 94.6 FL (78-98); MEAN PLATELET VOLUME 6.6 FL (7.4-10.4); MONOCYTES # (AUTO) 0.6 X10'3 (0-0.9); NEUTROPHILS # (AUTO) 5.9 X10'3 (1.8-7.7); PLATELET COUNT 342 X10'3 (140-440); RED BLOOD COUNT 4.19 X10'6 (4.20-5.60); RED CELL DISTRIBUTION WIDTH 16.9 % (11.5-14.5); WHITE BLOOD COUNT 7.8 X10'3 (4.5-11.0)
[2022-09-19 10:00] LABS: ALANINE AMINOTRANSFERASE 27 U/L (12-78); ALBUMIN 3.5 G/DL (3.4-5.0); ALBUMIN/GLOBULIN RATIO 0.9 (1.1-1.5); ALKALINE PHOSPHATASE 103 IU/L (46-116); ANION GAP 28 (8-16); ASPARTATE AMINO TRANSFERASE 22 U/L (10-37); BILIRUBIN,TOTAL 0.3 MG/DL (0.1-1.0); BLOOD UREA NITROGEN 9 MG/DL (7-18); BUN/CREATININE RATIO 12.9 (6.6-38.0); CALCIUM 8.9 MG/DL (8.5-10.1); CHLORIDE 98 MMOL/L (99-107); GLUCOSE 150 MG/DL (70-104); MAGNESIUM 1.8 MG/DL (1.5-2.4); SODIUM 139 MMOL/L (135-145); TOTAL PROTEIN 7.6 G/DL (6.4-8.2); eGFR 85 ML/MIN
[2022-09-19 10:17] LABS: TOTAL CARBON DIOXIDE 13.3 MMOL/L (24-32)
[2022-09-19 10:30] LABS: URINE AMPHETAMINE SCREEN NEGATIVE (Neg); URINE BARBITUATE SCREEN NEGATIVE (Neg); URINE BENZODIAZEPINES SCREEN NEGATIVE (Neg); URINE CANNABINOID SCREEN NEGATIVE (Neg); URINE COCAINE SCREEN NEGATIVE (Neg); URINE METHADONE SCREEN NEGATIVE (Neg); URINE OPIATE SCREEN NEGATIVE (Neg); URINE PHENCYCLIDINE SCREEN NEGATIVE (Neg)
[2022-09-19 10:31] LABS: CLARITY,URINE CLEAR (Clear); COLOR,URINE YELLOW (Yellow); GLUCOSE, URINE NEGATIVE (Neg); KETONES,URINE 15 mg/dl (Neg); LEUKOCYTE ESTERASE ,URINE NEGATIVE (Neg); NITRITES, URINE NEGATIVE (Neg); OCCULT BLOOD,URINE SMALL (Neg); PH,URINE 5.5 (4.8-8.0); PROTEIN,URINE TRACE mg/dl (Neg); UROBILINOGEN,URINE 0.2 E.U/dL (0.2-1.0)
[2022-09-19] MEDS ORDERED: potassium Cl 20 mEq SR tablet PO PRN (10:35)
[2022-09-19] MEDS ORDERED: magnesium 2GM in 50ml NS 50 ML IV ONE (10:35)
[2022-09-19 10:39] LABS: UA COLLECTION TYPE CLN CATCH MIDSTREAM
[2022-09-19 10:40] LABS: WBC,URINE 0-4 /HPF (0-4)
[2022-09-19] MEDS ORDERED: LORazepam 2 mg/ml vial IV ONE (10:40)
[2022-09-19 10:41] LABS: BACTERIA,URINE FEW /HPF (Neg); MUCUS STRANDS MODERATE /LPF (Neg); RBC,URINE 0-2 /HPF (0-2); SQUAMOUS EPITHELIAL CELL,UR FEW /LPF (FEW)
[2022-09-19 10:53] LABS: ABG BASE EXCESS -2.8 mmol/L (-2.0-2.0); ABG HCO3 19.6 mmol/L (22.0-26.0); ABG PCO2 (T) 27.7 mmHg (32.0-45.0); ABG PO2 (T) 82.5 mmHg (75.0-100.0); ALLEN'S TEST POSITIVE; FCOHb 0.4 % (0.0-3.9); FO2Hb 95.6 % (94-97); TOTAL HEMOGLOBIN 12.9 G/dl (12.0-16.0)
[2022-09-19 12:42] LABS: ALBUMIN 3.2 G/DL (3.4-5.0); ANION GAP 12 (8-16); BLOOD UREA NITROGEN 9 MG/DL (7-18); CALCIUM 8.1 MG/DL (8.5-10.1); CHLORIDE 103 MMOL/L (99-107); GLUCOSE 99 MG/DL (70-104); POTASSIUM 3.5 MMOL/L (3.5-5.1); SODIUM 138 MMOL/L (135-145); TOTAL CARBON DIOXIDE 22.9 MMOL/L (24-32); eGFR > 90 ML/MIN
[2022-09-19] MEDS ORDERED: losartan 25mg tablet PO ONE (12:50)
[2022-09-19] MEDS ORDERED: normal saline 1000ml 1,000 ML IV ONE (13:15)
[2022-09-19] MEDS ORDERED: adenosine 3mg/ml 2ml vial IV ONE (13:15)
[2022-09-19] MEDS ORDERED: LORA-269 PO (13:41)
[2022-09-19] MEDS ORDERED: NALT50TA PO (13:41)
[2022-09-19 14:02] VITALS: BP 163/101
== END 2022-09-19 14:26 | disposition home or self-care (01) ==
LOC: ER 09:21
DX: R56.9 Unspecified convulsions (principal); F10.129 Alcohol abuse with intoxication, unspecified; Y90.9 Presence of alcohol in blood, level not specified; I10 Essential (primary) hypertension; Z90.49 Acquired absence of other specified parts of digestive tract; Z79.899 Other long term (current) drug therapy
CPT/HCPCS: 36415; 36600; 71045; 80048; 80053; 80305; 80320; 81001; 82803; 83605; 83735; 84484; 85018; 85025; 93005; 96361; 96365; 96375; 99285; J2060; J3475; J7030

== ENCOUNTER 2022-10-17 09:04 | Emergency (ER) | payer MEDICAID ==
[~2022-10-17] VITALS: Ht 165.1 cm; Wt 75.0 kg
[~2022-10-17 09:04] MED LIST changes: +LORA-269 PO; +NALT50TA PO
[2022-10-17 09:06] VITALS: BP 154/88
[2022-10-17] MEDS ORDERED: ONDA8TAB13 PO (10:48)
[2022-10-17] MEDS ORDERED: ondansetron 4mg rapidly disintigrating tab PO ONE (10:51)
[2022-10-17] MEDS ORDERED: chlordiazePOXIDE 25mg capsule PO ONE (10:52)
[2022-10-17] MEDS ORDERED: normal saline 1000ml 1,000 ML IV ONE (11:10)
[2022-10-17] MEDS ORDERED: proCHLORperazine 10 MG/2 ml inj IV ONE (11:10)
== END 2022-10-17 12:52 | disposition home or self-care (01) ==
LOC: ER 09:04
DX: R11.2 Nausea with vomiting, unspecified (principal); R06.02 Shortness of breath; R53.1 Weakness; I10 Essential (primary) hypertension; I25.2 Old myocardial infarction; F32.A Depression, unspecified; Z86.69 Personal history of other diseases of the nervous system and sense organs; Z90.710 Acquired absence of both cervix and uterus; Z72.89 Other problems related to lifestyle; Z79.899 Other long term (current) drug therapy
CPT/HCPCS: 96361; 96374; 99284; J0780; J7030

== ENCOUNTER 2022-11-14 10:24 | Emergency (ER) | payer MEDICAID ==
[~2022-11-14] VITALS: Ht 172.7 cm; Wt 68.2 kg
[~2022-11-14 10:24] MED LIST changes: +ONDA8TAB13 PO
[2022-11-14] MEDS ORDERED: LORazepam 1 MG tablet PO ONE (11:00)
[2022-11-14 11:25] LABS: BASOPHILS % (AUTO) 0.4 % (0-1); EOSINOPHILS % (AUTO) 0 % (0-6); HEMATOCRIT 37.1 % (35.0-45.0); HEMOGLOBIN 12.5 g/dl (12.0-16.0); LYMPHOCYTES # (AUTO) 0.4 X10'3 (1.1-4.8); LYMPHOCYTES % (AUTO) 4.9 % (21-51); MEAN CORPUSCULAR HEMOGLOBIN 31.9 PG (27.0-31.0); MEAN CORPUSCULAR HGB CONC 33.6 g/dL (33.0-36.5); MEAN PLATELET VOLUME 6.4 FL (7.4-10.4); MONOCYTES # (AUTO) 0.8 X10'3 (0-0.9); MONOCYTES % (AUTO) 11.3 % (2-12); NEUTROPHILS # (AUTO) 6.3 X10'3 (1.8-7.7); NEUTROPHILS % (AUTO) 83.4 % (42-75); PLATELET COUNT 358 X10'3 (140-440); RED BLOOD COUNT 3.91 X10'6 (4.20-5.60); RED CELL DISTRIBUTION WIDTH 14.7 % (11.5-14.5); WHITE BLOOD COUNT 7.5 X10'3 (4.5-11.0)
[2022-11-14 11:32] LABS: ALANINE AMINOTRANSFERASE 25 U/L (12-78); ALBUMIN 3.6 G/DL (3.4-5.0); ALKALINE PHOSPHATASE 99 IU/L (46-116); ANION GAP 12 (8-16); ASPARTATE AMINO TRANSFERASE 29 U/L (10-37); BILIRUBIN,TOTAL 0.9 MG/DL (0.1-1.0); BLOOD UREA NITROGEN 14 MG/DL (7-18); BUN/CREATININE RATIO 18.9 (6.6-38.0); CALCIUM 8.9 MG/DL (8.5-10.1); CHLORIDE 93 MMOL/L (99-107); CREATININE 0.74 MG/DL (0.40-0.90); GLUCOSE 145 MG/DL (70-104); POTASSIUM 3.2 MMOL/L (3.5-5.1); SODIUM 130 MMOL/L (135-145); TOTAL CARBON DIOXIDE 24.9 MMOL/L (24-32); TOTAL PROTEIN 7.1 G/DL (6.4-8.2); eGFR 79 ML/MIN
[2022-11-14] MEDS ORDERED: potassium Cl 20 mEq SR tablet PO STA (11:50)
[2022-11-14 12:06] VITALS: BP 189/85
== END 2022-11-14 12:08 | disposition home or self-care (01) ==
LOC: ER 10:25
DX: R56.9 Unspecified convulsions (principal); E87.6 Hypokalemia; I10 Essential (primary) hypertension; I25.2 Old myocardial infarction; F32.9 Major depressive disorder, single episode, unspecified; Z90.710 Acquired absence of both cervix and uterus; Z72.89 Other problems related to lifestyle; Z79.899 Other long term (current) drug therapy
CPT/HCPCS: 36415; 80053; 85025; 99283

== ENCOUNTER 2023-01-07 15:55 | Emergency (ER) | payer MEDICAID ==
[~2023-01-07] VITALS: Ht 172.7 cm; Wt 72.3 kg
[2023-01-07] MEDS ORDERED: LORazepam 2 mg/ml vial IV ONE (16:05)
[2023-01-07] MEDS ORDERED: normal saline 1000ML IV soln IVB ONE (16:05)
[2023-01-07] MEDS ORDERED: ondansetron/PF 4mg/2ml inj IV ONE (16:05)
[2023-01-07 16:54] LABS: BASOPHILS % (AUTO) 0.3 % (0-1); EOSINOPHILS % (AUTO) 0 % (0-6); HEMATOCRIT 37.6 % (35.0-45.0); HEMOGLOBIN 12.2 g/dl (12.0-16.0); LYMPHOCYTES # (AUTO) 0.5 X10'3 (1.1-4.8); LYMPHOCYTES % (AUTO) 4.2 % (21-51); MEAN CORPUSCULAR HGB CONC 32.4 g/dL (33.0-36.5); MEAN CORPUSCULAR VOLUME 95.8 FL (78-98); MEAN PLATELET VOLUME 6.8 FL (7.4-10.4); MONOCYTES # (AUTO) 0.8 X10'3 (0-0.9); MONOCYTES % (AUTO) 6.7 % (2-12); NEUTROPHILS # (AUTO) 10.2 X10'3 (1.8-7.7); NEUTROPHILS % (AUTO) 88.8 % (42-75); PLATELET COUNT 455 X10'3 (140-440); RED BLOOD COUNT 3.93 X10'6 (4.20-5.60); RED CELL DISTRIBUTION WIDTH 14.5 % (11.5-14.5); WHITE BLOOD COUNT 11.5 X10'3 (4.5-11.0)
[2023-01-07 17:05] LABS: ALANINE AMINOTRANSFERASE 42 U/L (12-78); ALBUMIN 3.7 G/DL (3.4-5.0); ALKALINE PHOSPHATASE 85 IU/L (46-116); ANION GAP 17 (8-16); ASPARTATE AMINO TRANSFERASE 38 U/L (10-37); BILIRUBIN,TOTAL 0.9 MG/DL (0.1-1.0); BLOOD UREA NITROGEN 11 MG/DL (7-18); BUN/CREATININE RATIO 14.5 (6.6-38.0); CALCIUM 9.4 MG/DL (8.5-10.1); CHLORIDE 93 MMOL/L (99-107); CREATININE 0.76 MG/DL (0.40-0.90); ETHANOL < 0.010 GM/DL (0.0-0.010); GLUCOSE 159 MG/DL (70-104); SODIUM 134 MMOL/L (135-145); TOTAL CARBON DIOXIDE 23.9 MMOL/L (24-32); TOTAL PROTEIN 7.4 G/DL (6.4-8.2); eGFR 77 ML/MIN
[2023-01-07 17:15] LABS: POTASSIUM 2.9 MMOL/L (3.5-5.1)
[2023-01-07] MEDS ORDERED: POTASSIUM BICARB 20meq eff tab 20 MEQ TABLET.EFF PO STA (17:55)
[2023-01-07] MEDS ORDERED: magnesium 2GM in 50ml NS 50 ML IV ONE (17:55)
[2023-01-07 18:12] LABS: CLARITY,URINE CLEAR (Clear); COLOR,URINE YELLOW (Yellow); GLUCOSE, URINE NEGATIVE (Neg); KETONES,URINE 40 mg/dl (Neg); LEUKOCYTE ESTERASE ,URINE NEGATIVE (Neg); NITRITES, URINE NEGATIVE (Neg); OCCULT BLOOD,URINE TRACE-INTACT (Neg); PROTEIN,URINE NEGATIVE (Neg); UROBILINOGEN,URINE 0.2 E.U/dL (0.2-1.0)
[2023-01-07 18:16] LABS: UA COLLECTION TYPE CLN CATCH MIDSTREAM
[2023-01-07 18:17] LABS: BACTERIA,URINE FEW /HPF (Neg); RBC,URINE 0-2 /HPF (0-2); SQUAMOUS EPITHELIAL CELL,UR NONE SEEN /LPF (FEW); WBC,URINE NONE SEEN /HPF (0-4)
[2023-01-07 18:31] LABS: URINE AMPHETAMINE SCREEN NEGATIVE (Neg); URINE BARBITUATE SCREEN NEGATIVE (Neg); URINE BENZODIAZEPINES SCREEN NEGATIVE (Neg); URINE CANNABINOID SCREEN NEGATIVE (Neg); URINE COCAINE SCREEN NEGATIVE (Neg); URINE METHADONE SCREEN NEGATIVE (Neg); URINE OPIATE SCREEN NEGATIVE (Neg); URINE PHENCYCLIDINE SCREEN NEGATIVE (Neg)
[2023-01-07] MEDS ORDERED: thiamine 100mg tablet PO ONE (18:50)
[2023-01-07 20:50] VITALS: BP 153/92
--- NOTE | 2023-01-08 10:37 | NUR ---
Received order for consult. Patient is discharged. Called patient to follow up and left message.
== END 2023-01-07 20:53 | disposition home or self-care (01) ==
LOC: ER 15:55
DX: R56.9 Unspecified convulsions (principal); F10.930 Alcohol use, unspecified with withdrawal, uncomplicated; I10 Essential (primary) hypertension; I25.2 Old myocardial infarction; F32.9 Major depressive disorder, single episode, unspecified; Z90.710 Acquired absence of both cervix and uterus; Z79.899 Other long term (current) drug therapy; Y90.9 Presence of alcohol in blood, level not specified
CPT/HCPCS: 36415; 80053; 80305; 80320; 81001; 85025; 93005; 96361; 96365; 96375; 99284; J2060; J2405; J3475; J7030

== ENCOUNTER 2024-05-17 03:15 | Emergency (ER) | payer MEDICAID ==
[~2024-05-17] VITALS: Ht 172.7 cm; Wt 66.5 kg
[~2024-05-17 03:15] MED LIST changes: -LOSA100T57 PO; +LOSA100T58 PO; -NALT50TA PO; +NALT50TA5 PO; +ONDA-243 PO; +ONDA-245 PO; -ONDA4TAB12 PO; -ONDA8TAB13 PO
[2024-05-17] MEDS: ondansetron/PF 4mg/2ml inj IV ONE ×2 (03:51→09:22)
[2024-05-17] MEDS: LORazepam 2 mg/ml vial IV ONE (04:03)
[2024-05-17 04:06] LABS: MEAN CORPUSCULAR HGB CONC 33.1 g/dL (33.0-36.5); RED CELL DISTRIBUTION WIDTH 16.1 % (11.5-14.5)
[2024-05-17] MEDS: thiamine 100mg/ml 2ml inj. IV ONE (04:07)
[2024-05-17] MEDS: pantoprazole 40 MG vial IV SCH (04:07)
[2024-05-17 04:08] LABS: BASOPHILS # (AUTO) 0.1 X10'3 (0-0.2); EOSINOPHILS % (AUTO) 0.1 % (0-6); HEMATOCRIT 39.9 % (35.0-45.0); HEMOGLOBIN 13.2 g/dl (12.0-16.0); LYMPHOCYTES # (AUTO) 1.5 X10'3 (1.1-4.8); MEAN CORPUSCULAR HEMOGLOBIN 32.3 PG (27.0-31.0); MEAN CORPUSCULAR VOLUME 97.7 FL (78-98); MEAN PLATELET VOLUME 6.7 FL (7.4-10.4); MONOCYTES # (AUTO) 0.5 X10'3 (0-0.9); MONOCYTES % (AUTO) 8.6 % (2-12); NEUTROPHILS # (AUTO) 3.9 X10'3 (1.8-7.7); NEUTROPHILS % (AUTO) 65.3 % (42-75); PLATELET COUNT 325 X10'3 (140-440); RED BLOOD COUNT 4.08 X10'6 (4.20-5.60); WHITE BLOOD COUNT 5.9 X10'3 (4.5-11.0)
[2024-05-17] MEDS: normal saline 1000ml 1,000 ML IV ONE (04:11)
[2024-05-17 04:16] LABS: ALANINE AMINOTRANSFERASE 32 U/L (12-78); ALBUMIN 3.1 G/DL (3.4-5.0); ALBUMIN/GLOBULIN RATIO 0.8 (1.1-1.5); ALKALINE PHOSPHATASE 136 IU/L (46-116); ANION GAP 20 (8-16); ASPARTATE AMINO TRANSFERASE 30 U/L (10-37); BILIRUBIN,TOTAL 0.4 MG/DL (0.1-1.0); BLOOD UREA NITROGEN 18 MG/DL (7-18); BUN/CREATININE RATIO 19.1 (10.0-20.0); CALCIUM 7.9 MG/DL (8.5-10.1); CHLORIDE 103 MMOL/L (99-107); CREATININE 0.94 MG/DL (0.40-0.90); ETHANOL 287 MG/DL (<10); GLUCOSE 124 MG/DL (70-104); POTASSIUM 3.5 MMOL/L (3.5-5.1); SODIUM 139 MMOL/L (135-145); eCRCL 60 ML/MIN; eGFR 60 ML/MIN
[2024-05-17 09:38] LABS: GASTRIC OCCULT BLOOD POSITIVE (Neg)
[2024-05-17 09:46] VITALS: BP 156/86; PULSE 110; RESP 16; TEMP 98.2; O2SAT 96
== END 2024-05-17 09:49 | disposition home or self-care (01) ==
LOC: ER 03:15
DX: F10.129 Alcohol abuse with intoxication, unspecified (principal); Z79.899 Other long term (current) drug therapy; I10 Essential (primary) hypertension; I25.2 Old myocardial infarction; F32.A Depression, unspecified; Z90.710 Acquired absence of both cervix and uterus; Y90.8 Blood alcohol level of 240 mg/100 ml or more
CPT/HCPCS: 36415; 80053; 80320; 82271; 85025; 96361; 96374; 96375; 96376; 99285; J2060; J2405; J2470; J3411; J7030

== ENCOUNTER 2024-05-22 15:02 | Emergency (ER) | payer MEDICAID ==
[~2024-05-22] VITALS: Ht 171.4 cm; Wt 69.0 kg
[2024-05-22] MEDS: ondansetron/PF 4mg/2ml inj IV ONE (16:41)
[2024-05-22] MEDS: fentaNYL/PF 50MCG/1 ML 2ML syringe IV ONE (16:42)
[2024-05-22] MEDS: LORazepam 2 mg/ml vial IV ONE (16:42)
[2024-05-22] MEDS: propofol 10mg/ml 20ml vial IV ONE (18:00)
[2024-05-22 20:20] VITALS: BP 125/85; PULSE 80; RESP 14; TEMP 98.1; O2SAT 99
== END 2024-05-22 20:21 | disposition home or self-care (01) ==
LOC: ER 15:03
DX: S43.084A Other dislocation of right shoulder joint, initial encounter (principal); I10 Essential (primary) hypertension; F32.A Depression, unspecified; M54.6 Pain in thoracic spine; Z79.899 Other long term (current) drug therapy; Z90.710 Acquired absence of both cervix and uterus; W19.XXXA Unspecified fall, initial encounter; Y93.89 Activity, other specified; Y92.89 Other specified places as the place of occurrence of the external cause; Y99.8 Other external cause status
CPT/HCPCS: 23650; 73020; 73030; 96374; 96375; 99152; 99153; 99285; J2060; J2405; J2704; J3010; J7030; 94760; A4620

== ENCOUNTER 2024-12-05 09:06 | Inpatient (IN) | payer MEDICAID ==
[~2024-12-05] VITALS: Ht 171.4 cm; Wt 78.5 kg
[~2024-12-05 09:06] MED LIST changes: -CHLO25CA10 PO; -CITA20TA28 PO; +FER325T PO; +FLUO-167 PO; +FOLI1TAB27 PO; +GABA-530 PO; +LIDO700A47 TP; +LIPA1CAP29 PO; -LORA-269 PO; -LOSA100T58 PO; +LOSA25TA41 PO; -ONDA-243 PO; -ONDA-245 PO; -PANT40TA54 PO; +VITC500T PO; -folic acid tablet PO
[2024-12-05 10:21] LABS: BASOPHILS % (AUTO) 0.4 % (0-1); EOSINOPHILS % (AUTO) 0 % (0-6); HEMATOCRIT 48.4 % (35.0-45.0); HEMOGLOBIN 15.9 g/dl (12.0-16.0); LYMPHOCYTES # (AUTO) 1.1 X10'3 (1.1-4.8); LYMPHOCYTES % (AUTO) 9.2 % (21-51); MEAN CORPUSCULAR HEMOGLOBIN 31.4 PG (27.0-31.0); MEAN CORPUSCULAR HGB CONC 32.9 g/dL (33.0-36.5); MEAN CORPUSCULAR VOLUME 95.5 FL (78-98); MEAN PLATELET VOLUME 6.7 FL (7.4-10.4); MONOCYTES # (AUTO) 0.8 X10'3 (0-0.9); MONOCYTES % (AUTO) 7.1 % (2-12); NEUTROPHILS # (AUTO) 9.6 X10'3 (1.8-7.7); NEUTROPHILS % (AUTO) 83.3 % (42-75); PLATELET COUNT 483 X10'3 (140-440); RED BLOOD COUNT 5.07 X10'6 (4.20-5.60); RED CELL DISTRIBUTION WIDTH 15.1 % (11.5-14.5); WHITE BLOOD COUNT 11.5 X10'3 (4.5-11.0)
[2024-12-05] MEDS: ondansetron 4mg rapidly disintigrating tab PO ONE ×2 (10:26→21:58)
[2024-12-05] MEDS: LORazepam 1 MG tablet PO ONE ×2 (10:26→21:59)
[2024-12-05 10:41] LABS: ALBUMIN 4.1 G/DL (3.4-5.0); ANION GAP 24 (8-16); BLOOD UREA NITROGEN 38 MG/DL (7-18); BUN/CREATININE RATIO 40.9 (10.0-20.0); CALCIUM 9.8 MG/DL (8.5-10.1); CHLORIDE 96 MMOL/L (99-107); CREATININE 0.93 MG/DL (0.40-0.90); ETHANOL 87 MG/DL (<10); GLUCOSE 105 MG/DL (70-104); POTASSIUM 4.1 MMOL/L (3.5-5.1); SODIUM 138 MMOL/L (135-145); THYROID STIMULATING HORMONE 0.78 ulU/ml (0.34-4.50); TOTAL CARBON DIOXIDE 18.5 MMOL/L (24-32); eCRCL 60 ML/MIN; eGFR 61 ML/MIN
[2024-12-05 10:49] LABS: BILIRUBIN,URINE NEGATIVE (Neg); COLOR,URINE YELLOW (Yellow); GLUCOSE, URINE NEGATIVE (Neg); KETONES,URINE 15 mg/dl (Neg); LEUKOCYTE ESTERASE ,URINE NEGATIVE (Neg); NITRITES, URINE NEGATIVE (Neg); OCCULT BLOOD,URINE TRACE-INTACT (Neg); PROTEIN,URINE 30 mg/dl (Neg); UROBILINOGEN,URINE 0.2 E.U/dL (0.2-1.0)
[2024-12-05 10:54] LABS: URINE AMPHETAMINE SCREEN NEGATIVE (Neg); URINE BARBITUATE SCREEN NEGATIVE (Neg); URINE BENZODIAZEPINES SCREEN NEGATIVE (Neg); URINE CANNABINOID SCREEN NEGATIVE (Neg); URINE COCAINE SCREEN NEGATIVE (Neg); URINE METHADONE SCREEN NEGATIVE (Neg); URINE OPIATE SCREEN NEGATIVE (Neg); URINE PHENCYCLIDINE SCREEN NEGATIVE (Neg)
[2024-12-05 10:57] LABS: CLARITY,URINE SLIGHTLY CLOUDY (Clear); UA COLLECTION TYPE NON-SPECIFIED
[2024-12-05 11:00] LABS: BACTERIA,URINE 1+ /HPF (Neg); MUCUS STRANDS NONE SEEN /LPF (Neg); RBC,URINE 0-2 /HPF (0-2); SQUAMOUS EPITHELIAL CELL,UR MODERATE /LPF (FEW)
[2024-12-05 11:01] LABS: HYALINE CASTS >30 /LPF (NEGATIVE)
[2024-12-05] MEDS: normal saline 1000ml 1,000 ML IV ONE ×2 (11:07→11:08)
[2024-12-05] MEDS: loperamide 2mg capsule PO ONE (16:22)
[2024-12-05] MEDS ORDERED: FLUO40CA PO (20:37)
[2024-12-05] MEDS: QUEtiapine 25mg tablet PO SCH (21:58)
[2024-12-06] MEDS ORDERED: losartan 25mg tablet PO PRN (08:05)
[2024-12-06] MEDS: folic acid 1mg tablet PO SCH (09:11)
[2024-12-06] MEDS: ferrous sulfate 325mg tablet PO SCH (09:12)
[2024-12-06] MEDS: FLUoxetine 20mg capsule PO SCH (09:12)
[2024-12-06] MEDS: ascorbic acid 500mg tablet PO SCH (09:12)
[2024-12-06] MEDS: thiamine 100mg tablet PO SCH (09:12)
[2024-12-06] MEDS ORDERED: gabapentin 100mg capsule PO SCH (13:00)
[2024-12-06] MEDS: LIPASE/PROTEASE/AMYLASE 10,500 units CAPSULE.DR PO SCH (13:25)
[2024-12-06] MEDS: gabapentin 400mg capsule PO SCH (13:25)
[2024-12-06 14:38] VITALS: BP 140/80; PULSE 94; RESP 16; TEMP 98.4; O2SAT 98
[2024-12-06] MEDS ORDERED: mag hydrox/Alum hydrox/simeth 30ml oral suspension PO PRN (16:40)
[2024-12-06] MEDS ORDERED: magnesium hydroxide 30ml (MOM) UD suspension PO PRN (16:40)
[2024-12-06] MEDS: loperamide 2mg capsule PO PRN (17:08)
[2024-12-06] MEDS: acetaminophen 325mg tablet PO PRN (17:10)
[2024-12-06 19:00] VITALS: RESP 18; O2SAT 97
[2024-12-06 20:00] VITALS: BP 115/76; PULSE 93; RESP 16; TEMP 97.3; O2SAT 97
[2024-12-06] MEDS: traZODone 50mg tablet PO SCH (21:11)
[2024-12-07 07:30] VITALS: RESP 12; O2SAT 98
[2024-12-07 07:52] VITALS: BP 121/72; PULSE 73; RESP 12; TEMP 98; O2SAT 95
[2024-12-07] MEDS: LIDOcaine 5% patch TP SCH (08:15)
[2024-12-07] MEDS: naltrexone 50mg tablet PO SCH (08:20)
[2024-12-07 19:00] VITALS: BP 134/82; PULSE 84; RESP 18; TEMP 97.9; O2SAT 94
[2024-12-07] MEDS: aripiprazole 10MG tablet PO SCH (21:07)
[2024-12-08 07:30] VITALS: BP 148/96; PULSE 88; RESP 16; TEMP 97.9; O2SAT 95
[2024-12-08 19:00] VITALS: RESP 18; O2SAT 98
[2024-12-08 20:00] VITALS: BP 149/92; PULSE 81; RESP 18; TEMP 98.3; O2SAT 98
[2024-12-08] MEDS: losartan 25mg tablet PO ONE (21:32)
[2024-12-09] MEDS: losartan 25mg tablet PO SCH (07:27)
[2024-12-09 07:30] VITALS: BP 130/85; PULSE 81; RESP 18; TEMP 97.9; O2SAT 92
[2024-12-09 19:00] VITALS: RESP 20; O2SAT 97
[2024-12-09 20:00] VITALS: BP 125/90; PULSE 89; RESP 20; TEMP 97.8; O2SAT 97
[2024-12-09] MEDS: DICLOFENAC SODIUM 1% gel 1 50GM tube TP SCH (21:55)
[2024-12-09] MEDS: acetaminophen 325mg tablet PO PRN (21:56)
[2024-12-10 07:00] VITALS: RESP 14; O2SAT 93
[2024-12-10 08:00] VITALS: BP 124/78; PULSE 73; RESP 14; TEMP 97.3; O2SAT 93
[2024-12-10 19:00] VITALS: RESP 16; O2SAT 95; O2SAT 99
[2024-12-10 20:00] VITALS: BP 156/63; PULSE 77; TEMP 98.2; O2SAT 95
[2024-12-10] MEDS: ciprofloxacin 250mg tablet PO SCH (20:00)
[2024-12-11 06:44] VITALS: RESP 16; O2SAT 95
[2024-12-11 08:00] VITALS: BP 117/64; PULSE 77; RESP 16; TEMP 97; O2SAT 100
[2024-12-11] MEDS: gabapentin 400mg capsule PO SCH (13:57)
[2024-12-11 19:00] VITALS: RESP 17; O2SAT 97
[2024-12-11 19:55] VITALS: BP 135/63; PULSE 83; RESP 17; TEMP 98.1; O2SAT 97
[2024-12-12 07:00] VITALS: RESP 14; O2SAT 97
[2024-12-12 08:00] VITALS: BP 142/82; PULSE 71; RESP 14; TEMP 97.4; O2SAT 97
[2024-12-12 09:13] LABS: BASOPHILS % (AUTO) 0.7 % (0-1); EOSINOPHILS # (AUTO) 0.1 X10'3 (0-0.9); EOSINOPHILS % (AUTO) 3.1 % (0-6); HEMATOCRIT 36.7 % (35.0-45.0); HEMOGLOBIN 12.4 g/dl (12.0-16.0); LYMPHOCYTES # (AUTO) 1.9 X10'3 (1.1-4.8); LYMPHOCYTES % (AUTO) 40.5 % (21-51); MEAN CORPUSCULAR HEMOGLOBIN 32.3 PG (27.0-31.0); MEAN CORPUSCULAR HGB CONC 33.8 g/dL (33.0-36.5); MEAN CORPUSCULAR VOLUME 95.4 FL (78-98); MEAN PLATELET VOLUME 7.4 FL (7.4-10.4); MONOCYTES # (AUTO) 0.5 X10'3 (0-0.9); MONOCYTES % (AUTO) 9.5 % (2-12); NEUTROPHILS # (AUTO) 2.2 X10'3 (1.8-7.7); NEUTROPHILS % (AUTO) 46.2 % (42-75); PLATELET COUNT 270 X10'3 (140-440); RED BLOOD COUNT 3.85 X10'6 (4.20-5.60); RED CELL DISTRIBUTION WIDTH 14.2 % (11.5-14.5); WHITE BLOOD COUNT 4.8 X10'3 (4.5-11.0)
[2024-12-12 19:00] VITALS: RESP 14; O2SAT 99
[2024-12-12 20:00] VITALS: BP 131/82; PULSE 86; RESP 14; TEMP 97.9; O2SAT 99
[2024-12-13 07:00] VITALS: BP 147/83; PULSE 69; RESP 16; TEMP 98.4; O2SAT 98
[2024-12-13 18:25] LABS: ALANINE AMINOTRANSFERASE 29 U/L (12-78); ALBUMIN 3.4 G/DL (3.4-5.0); ALBUMIN/GLOBULIN RATIO 0.8 (1.1-1.5); ALKALINE PHOSPHATASE 119 IU/L (46-116); ANION GAP 5 (8-16); ASPARTATE AMINO TRANSFERASE 18 U/L (10-37); BILIRUBIN,TOTAL 0.2 MG/DL (0.1-1.0); BLOOD UREA NITROGEN 21 MG/DL (7-18); BUN/CREATININE RATIO 31.8 (10.0-20.0); CHLORIDE 99 MMOL/L (99-107); CREATININE 0.66 MG/DL (0.40-0.90); GLUCOSE 90 MG/DL (70-104); POTASSIUM 4.3 MMOL/L (3.5-5.1); SODIUM 136 MMOL/L (135-145); TOTAL PROTEIN 7.6 G/DL (6.4-8.2); eCRCL 84 ML/MIN; eGFR 90 ML/MIN
[2024-12-13 19:00] VITALS: RESP 16; O2SAT 98
[2024-12-13 20:00] VITALS: BP 127/78; PULSE 78; RESP 16; TEMP 98.5; O2SAT 98
[2024-12-14 07:00] VITALS: BP 118/68; PULSE 67; RESP 17; TEMP 98.2; O2SAT 96
[2024-12-14 19:00] VITALS: RESP 14; O2SAT 98
[2024-12-14 19:28] VITALS: BP 122/89; PULSE 78; RESP 14; TEMP 98.2; O2SAT 98
[2024-12-14] MEDS: benzocaine (Anbesol) 12ml bottle MM PRN (22:42)
[2024-12-15 07:00] VITALS: RESP 14; O2SAT 98
[2024-12-15 08:00] VITALS: BP 140/89; PULSE 72; RESP 14; TEMP 98.2; O2SAT 97
[2024-12-15 19:00] VITALS: RESP 16; O2SAT 98
[2024-12-15 20:00] VITALS: BP 133/80; PULSE 86; RESP 16; TEMP 98.7; O2SAT 98
[2024-12-15] MEDS ORDERED: FLUO40CA PO (20:54)
[2024-12-15] MEDS ORDERED: GABA-535 PO (20:54)
[2024-12-15] MEDS ORDERED: LOSA25TA41 PO (20:54)
[2024-12-15] MEDS ORDERED: NALT50TA5 PO (20:54)
[2024-12-15] MEDS ORDERED: ARIP10TA87 PO (20:54)
[2024-12-15] MEDS ORDERED: ANBESOL MM (20:54)
[2024-12-15] MEDS ORDERED: TRAZ-251 PO (20:54)
[2024-12-16 07:00] VITALS: RESP 16; O2SAT 96
[2024-12-16 08:00] VITALS: BP 115/75; PULSE 72; RESP 16; TEMP 98; O2SAT 96
[2024-12-16 19:00] VITALS: RESP 16; O2SAT 99
[2024-12-16 19:24] VITALS: BP 130/96; PULSE 79; RESP 16; TEMP 98.3; O2SAT 99
[2024-12-17 07:00] VITALS: RESP 16; O2SAT 97
[2024-12-17 08:00] VITALS: BP 124/78; PULSE 74; RESP 16; TEMP 97.8; O2SAT 97
[2024-12-17 08:05] VITALS: BP_SYST 124; PULSE 74
== END 2024-12-17 13:14 | disposition home or self-care (01) | DRG 775 ==
LOC: ER 09:06 → ADULT MH 12-06 00:15
PROVIDERS: ADMIT Psychiatry & Neurology Psychiatry; ATTEND Psychiatry & Neurology Psychiatry
PROC: GZHZZZZ Group Psychotherapy (ICD-10-PCS; principal; 2024-12-08)
DX: F10.24 Alcohol dependence with alcohol-induced mood disorder (principal); E87.20 Acidosis, unspecified; R45.851 Suicidal ideations; F32.A Depression, unspecified; K86.1 Other chronic pancreatitis; I10 Essential (primary) hypertension; Z20.822 Contact with and (suspected) exposure to COVID-19; F10.288 Alcohol dependence with other alcohol-induced disorder; N39.0 Urinary tract infection, site not specified; Z79.899 Other long term (current) drug therapy; Z90.710 Acquired absence of both cervix and uterus; I25.2 Old myocardial infarction
CPT/HCPCS: 36415; 80048; 80053; 80305; 80320; 81001; 84443; 85025; 87081; 87811; 99285; A6250; C2617; J7030

== ENCOUNTER 2025-04-04 17:17 | Emergency (ER) | payer MEDICAID ==
[~2025-04-04] VITALS: Ht 170.2 cm; Wt 78.2 kg
[~2025-04-04 17:17] MED LIST changes: -FER325T PO; -FOLI1TAB27 PO; -LIDO700A47 TP; -LIPA1CAP29 PO; -NALT50TA5 PO; +OLAN10TA73 PO; -VITC500T PO; -thiamine tablet PO
[2025-04-04 18:11] LABS: BASOPHILS % (AUTO) 0.6 % (0-1); EOSINOPHILS % (AUTO) 0.2 % (0-6); HEMATOCRIT 38.4 % (35.0-45.0); HEMOGLOBIN 12.7 g/dl (12.0-16.0); LYMPHOCYTES # (AUTO) 1.7 X10'3 (1.1-4.8); LYMPHOCYTES % (AUTO) 25.4 % (21-51); MEAN CORPUSCULAR HEMOGLOBIN 31.1 PG (27.0-31.0); MEAN CORPUSCULAR HGB CONC 33.2 g/dL (33.0-36.5); MEAN CORPUSCULAR VOLUME 93.6 FL (78-98); MEAN PLATELET VOLUME 6.6 FL (7.4-10.4); MONOCYTES # (AUTO) 0.6 X10'3 (0-0.9); MONOCYTES % (AUTO) 8.8 % (2-12); NEUTROPHILS # (AUTO) 4.3 X10'3 (1.8-7.7); PLATELET COUNT 414 X10'3 (140-440); RED CELL DISTRIBUTION WIDTH 14.7 % (11.5-14.5); WHITE BLOOD COUNT 6.7 X10'3 (4.5-11.0)
--- NOTE | 2025-04-04 18:12 | Physician Documentation ---
History of Present Illness ~ Chief Complaint: Suicidal Ideation Stated Complaint: EVAL Time Seen by MD: 18:02 Primary Medical Doctor: [facility] Patient presents to the emergency room with chief complaint of suicidal ideation. Patient was admitted here recently for similar complaints. She plans to drink herself to . Endorses significant alcohol today. Medication Reconciliation Allergies: Coded Allergies: No Known Allergies (Unverified , 05/17/24) Scheduled Fluoxetine HCl (Fluoxetine HCl), 80 MG PO DAILY Gabapentin (Gabapentin), 200 MG PO TID Losartan Potassium (Losartan Potassium), 25 MG PO DAILY Olanzapine (Olanzapine), 10 MG PO HS Trazodone HCl (Trazodone HCl), 1 TAB PO HS Discontinued Medications Fluoxetine Hcl* (Prozac*), 1 CAP PO DAILY, (Reported) Losartan Potassium* (Cozaar*), 1 TAB PO DAILY, (Reported) Past Medical History Past Medical History: Seizures, Hypertension, Myocardial Infarction, Depression Past Surgical History: hysterectomy Alcohol Use: Abuse Drug Use: none Lives with: Family Lives In: Home Review of Systems ROS All review of systems negative except as per HPI Physical Exam Vital Signs: Temperature: 98.8, Heart Rate: 103, Respiratory Rate: 15, BP: 125/ 77, Pulse Oximetry: 95, Weight: 78.180 Oxygen Flow Rate: 0 Physical Exam General: Patient is awake, alert, oriented x4 in no acute distress Head: Normocephalic and atraumatic. Eyes: Conjunctival normal. EOMI. PERRL. ENT: Mucous membranes moist. Neck: Supple, trachea is midline. Chest: Clear to auscultation bilaterally without rales, rhonchi, or wheezes. There is no accessory muscle use or retractions. Cardiac: Tachycardic and regular without murmurs, gallops, or rubs. Psych: Cooperative, good eye contact, suicidal Progress Results/Orders Results/Orders Orders - DURAN SOOD MD Med Rec (04/04/25 18:05) Close Observation Level (04/04/25 18:05) Covid19 Binax Poc Result Entry (04/04/25 18:05) Substance Use Navigator (04/04/25 18:05) Regular Diet (04/05/25 Breakfast) 1799.11 (04/04/25 23:32) Completed Orders - DURAN SOOD MD Normal Saline 1000ml (Sodium Chloride 10 (04/04/25 18:05) Ondansetron Inj. (Zofran 4mg/2ml Vial) (04/04/25 18:05) TSH (04/04/25 18:05) Hydroxyzine Tablet (Atarax Tablet) (04/04/25 18:45) Metoclopramide Inj (Reglan Inj) (04/04/25 20:30) Normal Saline 1000ml (Sodium Chloride 10 (04/04/25 20:40) Potassium Cl Sr Tablet (K-Dur Tablet) (04/04/25 21:38) Ibuprofen Tablet (Motrin Tablet) (04/04/25 22:05) Medications Received in ER Medications (Trade) Dose Ordered Sig/Maxim Route PRN Reason Start Time Stop Time Status Last Admin Dose Admin Sodium Chloride 1,000 ml @ 1,000 mls/hr ONCE ONCE IV 04/04/25 18:05 04/04/25 19:04 DC 04/04/25 18:14 1,000 MLS/HR (Zofran 4mg/2ml vial) 4 mg ONCE ONCE IV 04/04/25 18:05 04/04/25 18:06 DC 04/04/25 18:14 4 MG (Atarax tablet) 50 mg ONCE ONCE PO 04/04/25 18:45 04/04/25 18:50 DC 04/04/25 19:00 50 MG (Reglan inj) 10 mg ONCE ONCE IV 04/04/25 20:30 04/04/25 20:32 DC 04/04/25 20:44 10 MG Sodium Chloride 1,000 ml @ 1,000 mls/hr ONCE ONCE IV 04/04/25 20:40 04/04/25 21:39 DC 04/04/25 20:43 1,000 MLS/HR (K-DUR tablet) 40 meq ONCE STAT PO 04/04/25 21:38 04/04/25 21:39 DC 04/04/25 21:42 40 MEQ (Motrin tablet) 600 mg ONCE ONCE PO 04/04/25 22:05 04/04/25 22:07 DC 04/04/25 22:17 600 MG Vital Signs 04/04/25 04/04/25 04/04/25 04/04/25 17:23 17:34 18:18 18:44 Temp 98.8 98.8 Pulse 103 92 Resp 15 12 18 B/P (MAP) 125/77 148/91 (110) Pulse Ox 95 96 O2 Flow Rate 0 0 04/04/25 22:01 Pulse 94 Resp 16 B/P (MAP) 156/91 (112) Pulse Ox 97 O2 Flow Rate 0 Laboratory Tests Test 04/04/25 17:53 04/04/25 18:16 04/04/25 19:45 White Blood Count 6.7 Red Blood Count 4.10 L Hemoglobin 12.7 Hematocrit 38.4 Mean Corpuscular Volume 93.6 Mean Corpuscular Hemoglobin 31.1 H Mean Corpuscular Hemoglobin Concent 33.2 Red Cell Distribution Width 14.7 H Platelet Count 414 Mean Platelet Volume 6.6 L Neutrophils (%) (Auto) 65.0 Lymphocytes (%) (Auto) 25.4 Monocytes (%) (Auto) 8.8 Eosinophils (%) (Auto) 0.2 Basophils (%) (Auto) 0.6 Neutrophils # (Auto) 4.3 Lymphocytes # (Auto) 1.7 Monocytes # (Auto) 0.6 Eosinophils # (Auto) 0.0 Basophils # (Auto) 0.0 CBC Comment Sodium Level 138 Potassium Level 3.3 L Chloride Level 99 Carbon Dioxide Level 20.8 L Anion Gap 18 H Blood Urea Nitrogen 12 Creatinine 0.71 Estimated GFR/1.73 m2 82 BUN/Creatinine Ratio 16.9 Glucose Level 96 Calcium Level 8.7 Magnesium Level 1.9 Albumin 3.4 Lipase 32 Thyroid Stimulating Hormone (TSH) 1.51 Chemistry Comments Ethyl Alcohol Level 128 H SARS-CoV-2 Antigen (Rapid) Negative Urine Specimen Description Cln catch midstream Urine Color Yellow Urine Clarity Clear Urine pH 6.0 Urine Specific [place] 1.020 Urine Protein Negative Urine Glucose (UA) Negative Urine Ketones Trace H Urine Occult Blood Small Urine Nitrite Negative Urine Bilirubin Negative Urine Urobilinogen 0.2 Urine Leukocyte Esterase Small H Urine RBC 0-2 Urine WBC 0-4 Urine Squamous Epithelial Cells Few Urine Bacteria Few Urine Culture Indicated Indicated Volume Urine Centrifuged 10 ml Urine Comment Urine Opiates Screen Negative Urine Methadone Screen Negative Urine Fentanyl Screen Negative Urine Barbiturates Screen Negative Urine Phencyclidine Screen Negative Urine Amphetamines Screen Negative Urine Benzodiazepines Screen Negative Urine Cocaine Screen Negative Urine Cannabinoids Screen Negative Drug Screen Comment Microbiology Date/Time Source Procedure Growth Status 04/04/25 20:50 Urine Clean Catch Midstream Urine Culture - Preliminary Culture received. Resulted Medical Decision Making Findings Patient presented to the emergency room for evaluation of suicidal ideation. Differentials include but are not limited to suicidal ideation, thyroid disorder, dysthymia, depression therefore emergent labs ordered. 1799 placed. Labs reviewed and there was no evidence of major pathologic derangements. Mildly low potassium which has been supplemented. Patient is medically cleared for mental health evaluation Departure Disposition: 30 STILL A PATIENT Impression: Primary Impression: Alcoholic intoxication Additional Impressions: Hypokalemia Suicidal ideation Condition: Guarded Discharge Instructions: Suicidal Feelings: How to Help Yourself Referrals: NO PRIMARY CARE PROVIDER (PCP) Signature Scribe Signature: No scribe Attestation: The note accurately reflects work and decisions made by me.Duran Sood MD 04/04/25 23:34 DURAN SOOD MD Apr 04, 2025 18:12
[2025-04-04] MEDS: normal saline 1000ml 1,000 ML IV ONE ×2 (18:14→20:43)
[2025-04-04] MEDS: ondansetron/PF 4mg/2ml inj IV ONE (18:14)
[2025-04-04 18:36] LABS: ALBUMIN 3.4 G/DL (3.4-5.0); ANION GAP 18 (8-16); BLOOD UREA NITROGEN 12 MG/DL (7-18); BUN/CREATININE RATIO 16.9 (10.0-20.0); CALCIUM 8.7 MG/DL (8.5-10.1); CHLORIDE 99 MMOL/L (99-107); CREATININE 0.71 MG/DL (0.40-0.90); ETHANOL 128 MG/DL (<10); GLUCOSE 96 MG/DL (70-104); LIPASE 32 U/L (16-77); MAGNESIUM 1.9 MG/DL (1.5-2.4); POTASSIUM 3.3 MMOL/L (3.5-5.1); SODIUM 138 MMOL/L (135-145); THYROID STIMULATING HORMONE 1.51 ulU/ml (0.34-4.50); TOTAL CARBON DIOXIDE 20.8 MMOL/L (24-32); eCRCL 76 ML/MIN; eGFR 82 ML/MIN
[2025-04-04] MEDS: hydrOXYzine 25 MG tablet PO ONE (19:00)
[2025-04-04 20:30] LABS: BILIRUBIN,URINE NEGATIVE (Neg); CLARITY,URINE CLEAR (Clear); COLOR,URINE YELLOW (Yellow); GLUCOSE, URINE NEGATIVE (Neg); KETONES,URINE TRACE mg/dl (Neg); LEUKOCYTE ESTERASE ,URINE SMALL (Neg); NITRITES, URINE NEGATIVE (Neg); OCCULT BLOOD,URINE SMALL (Neg); PROTEIN,URINE NEGATIVE (Neg); UA COLLECTION TYPE CLN CATCH MIDSTREAM; UROBILINOGEN,URINE 0.2 E.U/dL (0.2-1.0)
[2025-04-04] MEDS ORDERED: potassium Cl 20 mEq SR tablet PO STA (20:36)
[2025-04-04 20:42] LABS: URINE AMPHETAMINE SCREEN NEGATIVE (Neg); URINE BARBITUATE SCREEN NEGATIVE (Neg); URINE BENZODIAZEPINES SCREEN NEGATIVE (Neg); URINE CANNABINOID SCREEN NEGATIVE (Neg); URINE COCAINE SCREEN NEGATIVE (Neg); URINE METHADONE SCREEN NEGATIVE (Neg); URINE OPIATE SCREEN NEGATIVE (Neg); URINE PHENCYCLIDINE SCREEN NEGATIVE (Neg)
[2025-04-04] MEDS: metoclopramide 5 mg/ml inj IV ONE (20:44)
[2025-04-04 20:48] LABS: WBC,URINE 0-4 /HPF (0-4)
[2025-04-04 20:49] LABS: BACTERIA,URINE FEW /HPF (Neg); RBC,URINE 0-2 /HPF (0-2); SQUAMOUS EPITHELIAL CELL,UR FEW /LPF (FEW)
[2025-04-04] MEDS: potassium Cl 20 mEq SR tablet PO STA (21:42)
[2025-04-04] MEDS: ibuprofen tablet 400 MG TABLET PO ONE (22:17)
--- NOTE | 2025-04-05 01:17 | RADIOLOGY REPORT ---
CLINICAL INDICATION: right shoulder pain TECHNIQUE: DI SHOULDER, COMPLETE (MIN 2 VWS) Comparison: DI SHOULDER, COMPLETE (MIN 2 VWS) on DOS: 10/10/24, DI SHOULDER, COMPLETE (MIN 2 VWS) on D OS: 05/22/24 FINDINGS/IMPRESSION: : Moderate anterior and inferior subluxation of the humeral head with respect to the glenoid process of the scapula consistent with anterior shoulder dislocation. No evidence of fracture. The visualized portions of the left lung are clear in the soft tissue elemen ts are intact.
[2025-04-05 07:07] VITALS: BP 149/84; PULSE 73; TEMP 97.3; O2SAT 95
[2025-04-05 08:00] VITALS: RESP 16
[2025-04-05] MEDS ORDERED: NALT50TA5 PO (09:32)
[2025-04-05] MEDS ORDERED: LORazepam 1 MG tablet PO ONE (10:25)
[2025-04-05] MEDS: LORazepam 1 MG tablet PO ONE (10:51)
== END 2025-04-05 12:31 | disposition home or self-care (01) ==
LOC: ER 17:18
DX: F10.129 Alcohol abuse with intoxication, unspecified (principal); R45.851 Suicidal ideations; E87.6 Hypokalemia; I25.2 Old myocardial infarction; F32.A Depression, unspecified; I10 Essential (primary) hypertension; Z90.710 Acquired absence of both cervix and uterus; Z79.899 Other long term (current) drug therapy; Z20.822 Contact with and (suspected) exposure to COVID-19; Y90.9 Presence of alcohol in blood, level not specified
CPT/HCPCS: 36415; 73030; 80048; 80305; 80320; 81001; 83690; 83735; 84443; 85025; 87088; 87811; 96374; 96375; 99285; J2405; J2765; J7030; Q0177; A6258